=== PATIENT | female | born 1985 | race Caucasian/White ===

== ENCOUNTER → 2018-09-22 14:02 | Outpatient (CLI) | payer BC, SELFPAY ==
--- OUTSIDE RECORDS SUMMARY | 2018-11-27 09:02 | XMS RPT_ITS ---
:1985 Author Organization OHIP Care Team Providers Name Role Phone WOODROW GREER Attending Unavailable ALMA SORENSON Referring Unavailable ANNIE CHAVEZ Attending Unavailable WOODROW GREER E Referring Unavailable ANNIE CHAVEZ Referring Unavailable ANNIE CHAVEZ Referring Unavailable CHRISTIAN SNOW () Referring Unavailable PERCY, WOODROW E Attending Unavailable PERCY WOODROW E Referring Unavailable CHRISTIAN SNOW () Attending Unavailable CHRISTIAN SNOW) Referring Unavailable CHRISTIAN SNOW) Referring Unavailable CHRISTIAN SNOW) Attending Unavailable CHRISTIAN SNOW) Referring Unavailable PERCY, WOODROW E Referring Unavailable Matias Bryant Attending Unavailable Primay Care Physicia, No Primary Care Unavailable PROBLEMS PROBLEMS DATE TYPE CONDITION / CODE ATTENDING STATUS SOURCE 09/22/2018 Unknown Z36.85 - Encounter Matias Bryant Active [facility] for [facility] Streptococcus B / Repository Z36.85(ICD-10) 01/28/2017 Active Essential (primary) NA Active [place] hypertension / [facility] Main I10(ICD-10) [place] Repository 08/06/2018 Active Mixed hyperlipidemia NA Active [place] / E78.2(ICD-10) Clinic Main [place] Repository 02/10/2018 Active Irregular NA Active [place] menstruation, Clinic Main unspecified / [place] N92.6(ICD-10) Repository 01/27/2018 Active Other rodent exterminator NA Active [place] (current) drug Clinic Main therapy / [place] Z79.899(ICD-10) Repository 12/01/2017 Active Other general NA Active [place] symptoms and signs / Clinic Main R68.89(ICD-10) [place] Repository 12/01/2017 Active Abnormal weight gain NA Active [facility] / R63.5(ICD-10) Clinic Main [place] Repository 11/23/2017 Active Other obesity / NA Active [place] E66.8(ICD-10) Clinic Main [place] Repository 11/23/2017 Active Polycystic ovarian NA Active [place] syndrome / Clinic Main E28.2(ICD-10) [place] Repository 11/23/2017 Active Hirsutism / NA Active [facility] L68.0(ICD-10) Clinic Main [place] Repository 11/23/2017 Active Vitamin D NA Active [place] deficiency, Clinic Main unspecified / [place] E55.9(ICD-10) Repository 11/12/2017 Active Other hypersomnia / NA Active [facility] G47.19(ICD-10) Clinic Other [place] Repository 11/12/2017 Active Snoring / NA Active [facility] R06.83(ICD-10) Clinic Other [place] Repository 11/12/2017 Active Other fatigue / NA Active [facility] R53.83(ICD-10) Clinic Other [place] Repository 11/03/2017 Active Unknown / MOUL, WOODROW E Active [facility] UNK(Unknown) Clinic Main [place] Repository PROCEDURES PROCEDURES No Procedure Records FoundRESULTS RESULTS Observed: 09/22/2018 Status: F Source: [facility] 9:15 AM [facility] REPOSITORY Comments: VAGINAL/RECTAL JATINDER Culture ORGANISM 1: Streptococcus agalactiae (B) Amount Growth Growth Streptococcus agalactiae (B): REACTION Ampicillin $ <=0.25 S Benzylpenicillin NF <=0.06 S Ceftriaxone (other dx) $ <=0.12 S Clindamycin $$ <=0.25 S Inducable Clindamycin Resistan NEG Linezolid $$$$ <=2 S Vancomycin $ 0.5 S (NF) indicates non-formulary drug at [facility]. Approval by Infectious Disease Specialist required before non-formulary drugs may be ordered and/or dispensed. * CLSI guidelines does not recommend testing of cephalosporins. This interpretation is deduced from Beta-lactam/penicillin results. Performed By: #### [id number] #### [facility] [address] [place], [address] PROGRESS Observed: 08/10/2018 Status: COMPLETED Source: [place] 8:01 AM [facility] REPOSITORY HNO ID: [id number] Author: Christian Otero) Edy Service: (none) Author Type: Physician Type: Progress Notes Filed: 08/10/2018 8:39 AM Note Text: Chief Complaint Patient presents with: F/U 6 Month HPI Meme Lara is a 32 year old female who presents here today for 6 month follow up. Patient at 30 weeks with delivery date of 10/[address] Bryant. States that she is having baby boy and has had normal thus far aside from some early nausea. Next appointment with OB 08/16. Stopped wellbutrin as recommended. HTN: well controlled on HCTZ. GERD: patient not sure if she is on Protonix or Prilosec for GERD. New rx prescribed by Dr. Bryant, will need to obtain records. Medication working well. Environmental allergies: getting allergy shots, cannot remember name of provider. Will obtain records. Past medical history, appointments, medications, allergies reviewed. Previous Medical History PAST MEDICAL HISTORY Diagnosis Date - Environmental allergies Allergy shots - Excessive daytime sleepiness Dr. Greer, on wellbutrin - GERD (gastroesophageal reflux disease) - HTN (hypertension) - Obesity (BMI 30.0-34.9) Previous Surgical History PAST SURGICAL HISTORY Procedure Laterality Date - BREAST REDUCTION Bilateral 2001 - TOOTH EXTRACTION Family History FAMILY HISTORY Problem Relation Age of Onset - Hypertension Father - Breast Cancer Maternal Grandmother 60 - Cancer Maternal Grandfather Patient Allergies ALLERGIES Allergen Reactions - Steroids [Betametha* Rash Current Medications Current Outpatient Prescriptions on File Prior to Visit: hydroCHLOROthiazide (HYDRODIURIL, ESIDRIX) 25 mg tablet Take 1 tablet by mouth once daily. omeprazole (PRILOSEC) 20 mg capsule 1 capsule once daily. Zxwsezke-Xr-Fej-Fe-FA ( VITAMIN) tab Take 1 tablet by mouth once daily. meclizine (ANTIVERT) 12.5 mg tab Take 1 tablet by mouth every 6 hours as needed (dizziness). buPROPion SR (ZYBAN SR; WELLBUTRIN SR) 150 mg 12 hr tablet Take by mouth one tablet daily. Cholecalciferol, Vitamin D3, 2,000 unit cap Take 2 capsules by mouth once daily. fluticasone (FLONASE) 50 mcg/actuation nasal spray Use 2 Sprays in each nostril once daily. Rinse mouth after use. (Patient not taking: Reported on 08/10/2018 ) No current facility-administered medications on file prior to visit. Social History Social History Marital status: Spouse name: Years of education: Number of children: Social History Main Topics Smoking status: Never Smoker Smokeless tobacco: Never Used Alcohol use: Yes 3.0 oz/week Cans of Beer (12oz): 2 per week Drug use: No Sexual activity: Yes Partners with: Male control/protection: None Review of Symptoms REVIEW OF SYSTEMS GENERAL: No weight loss, malaise or fevers RESPIRATORY: Negative for cough, hemoptysis, wheezing, COPD, dyspnea or shortness of breath CARDIOVASCULAR: Negative for chest pain, leg swelling, hypertension, CHF or palpitations GI: No nausea, vomiting, or diarrhea SKIN: Negative for lesions, rash, and itching EXAM: BP 114/78 Pulse 104 Resp 16 Wt 95.3 kg (210 lb) BMI 33.39 kg/m? General Appearance: Well appearing, alert, in no acute distress, well-hydrated, well nourished.. Skin: Skin color, texture, turgor normal, no suspicious rashes or lesions. Lungs: lungs clear to auscultation. No wheezing, rhonchi, rales. Heart: tachycardia without murmur, gallop, or rubs. No ectopy. Abdomen: Abdomen soft, non-tender. Bowel sounds normal. patient. Extremities: No deformities, edema, skin discoloration, clubbing or cyanosis. Good capillary refill. . Health Maintenance List BP CONTROLLED (<130/80) due on 2002 ANNUAL PCP TEAM CHRONIC DISEASE VISIT due on 02/03/2019 PAP EVERY 5 YEARS due on 08/10/2021 HPV EVERY 5 YEARS due on 08/10/2021 DTAP,TDAP,TD(2 - Td) due on 02/04/2028 INFLUENZA Completed Data reviewed Component Latest Ref Rng AND Units 01/27/2018 02/10/2018 08/06/2018 Protein, Total 6.3 - 8.0 g/dL 6.9 Albumin 3.9 - 4.9 g/dL 3.7 (L) Calcium 8.5 - 10.2 mg/dL 9.4 9.7 Bilirubin, Total 0.2 - 1.3 mg/dL 0.2 Alkaline Phosphatase 34 - 123 U/L 92 AST 13 - 35 U/L 13 Glucose 74 - 99 mg/dL 99 98 BUN 7 - 21 mg/dL 15 9 Creatinine 0.58 - 0.96 mg/dL 0.85 0.68 Sodium 136 - 144 mmol/L 140 138 Potassium 3.7 - 5.1 mmol/L 4.3 4.6 Chloride 97 - 105 mmol/L 104 102 CO2 22 - 30 mmol/L 25 21 (L) Anion Gap 9 - 18 mmol/L 11 15 ALT 7 - 38 U/L 11 eGFR- >60 >60 eGFR-All Other Races . >60 >60 Cholesterol, Total <200 mg/dL 204 (H) Triglyceride <150 mg/dL 250 (H) HDL Cholesterol >39 mg/dL 48 LDL Cholesterol <100 mg/dL 106 (H) Non HDL Cholesterol <130 mg/dL 156 (H) Fasting Time hrs 10 VLDL Cholesterol <30 mg/dL 50 (H) TC:HDL Ratio <5.10 4.25 LDL:HDL Ratio <2.54 2.21 hCG Quantitative, Blood <5.0 mU/mL 1,416.0 (H) ASSESSMENT/PLAN: 1. 30 weeks gestation of - ICD9: V22.2, ICD10: Z3A.30 (primary diagnosis) Progressing normally per patient. Will obtain records from Dr. Bryant. 2. Environmental allergies - ICD9: V15.09, ICD10: Z91.09 Controlled. Continue allergy shots. 3. Gastroesophageal reflux disease, esophagitis presence not specified - ICD9: 530.81, ICD10: K21.9 - Discussed lifestyle modifications including limiting caffeine, no meals three hours before sleep and head of bed elevation 4. Essential hypertension, malignant - ICD9: 401.0, ICD10: I10 - good control - Continue current medication(s) - Encouraged dietary sodium restriction/DASH diet - Recommended regular aerobic exercise. - Reviewed risks of HTN and principles of treatment - Goal of BP <140/90 - COMP METABOLIC PANEL 5. Tachycardia - ICD9: 785.0, ICD10: R00.0 Patient admits to drinking caffeine this morning. Has not been tachycardic at other OV with OB as far as she knows. Will have them recheck at future OV. Christian Snow MD CNOV Observed: 08/10/2018 Status: COMPLETED Source: [place] 8:00 AM [facility] REPOSITORY Office Visit (FAMPWS) MEME LARA ([id number]) 1985 F Date Time Provider Department 08/10/18 8:00 AM CHRISTIAN SNOW) FAMPWS During your visit today, we recorded the following information about you: Pulse Respiration Blood pressure Weight 104/minute 16/minute 114/78 95.3 kg Christian Snow MD 08/10/2018 8:39 AM Signed Chief Complaint Patient presents with: F/U 6 Month HPI Meme Lara is a 32 year old female who presents here today for 6 month follow up. Patient at 30 weeks with delivery date of 10/[address] Bryant. States that she is having baby boy and has had normal thus far aside from some early nausea. Next appointment with OB 08/16. Stopped wellbutrin as recommended. HTN: well controlled on HCTZ. GERD: patient not sure if she is on Protonix or Prilosec for GERD. New rx prescribed by Dr. Bryant, will need to obtain records. Medication working well. Environmental allergies: getting allergy shots, cannot remember name of provider. Will obtain records. Past medical history, appointments, medications, allergies reviewed. Previous Medical History PAST MEDICAL HISTORY Diagnosis Date - Environmental allergies Allergy shots - Excessive daytime sleepiness Dr. Greer, on wellbutrin - GERD (gastroesophageal reflux disease) - HTN (hypertension) - Obesity (BMI 30.0-34.9) Previous Surgical History PAST SURGICAL HISTORY Procedure Laterality Date - BREAST REDUCTION Bilateral 2001 - TOOTH EXTRACTION Family History FAMILY HISTORY Problem Relation Age of Onset - Hypertension Father - Breast Cancer Maternal Grandmother 60 - Cancer Maternal Grandfather Patient Allergies ALLERGIES Allergen Reactions - Steroids [Betametha* Rash Current Medications Current Outpatient Prescriptions on File Prior to Visit: hydroCHLOROthiazide (HYDRODIURIL, ESIDRIX) 25 mg tablet Take 1 tablet by mouth once daily. omeprazole (PRILOSEC) 20 mg capsule 1 capsule once daily. Jrwztdsg-Ik-Lcv-Fe-FA ( VITAMIN) tab Take 1 tablet by mouth once daily. meclizine (ANTIVERT) 12.5 mg tab Take 1 tablet by mouth every 6 hours as needed (dizziness). buPROPion SR (ZYBAN SR; WELLBUTRIN SR) 150 mg 12 hr tablet Take by mouth one tablet daily. Cholecalciferol, Vitamin D3, 2,000 unit cap Take 2 capsules by mouth once daily. fluticasone (FLONASE) 50 mcg/actuation nasal spray Use 2 Sprays in each nostril once daily. Rinse mouth after use. (Patient not taking: Reported on 08/10/2018 ) No current facility-administered medications on file prior to visit. Social History Social History Marital status: Spouse name: Years of education: Number of children: Social History Main Topics Smoking status: Never Smoker Smokeless tobacco: Never Used Alcohol use: Yes 3.0 oz/week Cans of Beer (12oz): 2 per week Drug use: No Sexual activity: Yes Partners with: Male control/protection: None Review of Symptoms REVIEW OF SYSTEMS GENERAL: No weight loss, malaise or fevers RESPIRATORY: Negative for cough, hemoptysis, wheezing, COPD, dyspnea or shortness of breath CARDIOVASCULAR: Negative for chest pain, leg swelling, hypertension, CHF or palpitations GI: No nausea, vomiting, or diarrhea SKIN: Negative for lesions, rash, and itching EXAM: BP 114/78 Pulse 104 Resp 16 Wt 95.3 kg (210 lb) BMI 33.39 kg/m? General Appearance: Well appearing, alert, in no acute distress, well-hydrated, well nourished.. Skin: Skin color, texture, turgor normal, no suspicious rashes or lesions. Lungs: lungs clear to auscultation. No wheezing, rhonchi, rales. Heart: tachycardia without murmur, gallop, or rubs. No ectopy. Abdomen: Abdomen soft, non-tender. Bowel sounds normal. patient. Extremities: No deformities, edema, skin discoloration, clubbing or cyanosis. Good capillary refill. . Health Maintenance List BP CONTROLLED (<130/80) due on 2002 ANNUAL PCP TEAM CHRONIC DISEASE VISIT due on 02/03/2019 PAP EVERY 5 YEARS due on 08/10/2021 HPV EVERY 5 YEARS due on 08/10/2021 DTAP,TDAP,TD(2 - Td) due on 02/04/2028 INFLUENZA Completed Data reviewed Component Latest Ref Rng AND Units 01/27/2018 02/10/2018 08/06/2018 Protein, Total 6.3 - 8.0 g/dL 6.9 Albumin 3.9 - 4.9 g/dL 3.7 (L) Calcium 8.5 - 10.2 mg/dL 9.4 9.7 Bilirubin, Total 0.2 - 1.3 mg/dL 0.2 Alkaline Phosphatase 34 - 123 U/L 92 AST 13 - 35 U/L 13 Glucose 74 - 99 mg/dL 99 98 BUN 7 - 21 mg/dL 15 9 Creatinine 0.58 - 0.96 mg/dL 0.85 0.68 Sodium 136 - 144 mmol/L 140 138 Potassium 3.7 - 5.1 mmol/L 4.3 4.6 Chloride 97 - 105 mmol/L 104 102 CO2 22 - 30 mmol/L 25 21 (L) Anion Gap 9 - 18 mmol/L 11 15 ALT 7 - 38 U/L 11 eGFR- >60 >60 eGFR-All Other Races . >60 >60 Cholesterol, Total <200 mg/dL 204 (H) Triglyceride <150 mg/dL 250 (H) HDL Cholesterol >39 mg/dL 48 LDL Cholesterol <100 mg/dL 106 (H) Non HDL Cholesterol <130 mg/dL 156 (H) Fasting Time hrs 10 VLDL Cholesterol <30 mg/dL 50 (H) TC:HDL Ratio <5.10 4.25 LDL:HDL Ratio <2.54 2.21 hCG Quantitative, Blood <5.0 mU/mL 1,416.0 (H) ASSESSMENT/PLAN: 1. 30 weeks gestation of - ICD9: V22.2, ICD10: Z3A.30 (primary diagnosis) Progressing normally per patient. Will obtain records from Dr. Bryant. 2. Environmental allergies - ICD9: V15.09, ICD10: Z91.09 Controlled. Continue allergy shots. 3. Gastroesophageal reflux disease, esophagitis presence not specified - ICD9: 530.81, ICD10: K21.9 - Discussed lifestyle modifications including limiting caffeine, no meals three hours before sleep and head of bed elevation 4. Essential hypertension, malignant - ICD9: 401.0, ICD10: I10 - good control - Continue current medication(s) - Encouraged dietary sodium restriction/DASH diet - Recommended regular aerobic exercise. - Reviewed risks of HTN and principles of treatment - Goal of BP <140/90 - COMP METABOLIC PANEL 5. Tachycardia - ICD9: 785.0, ICD10: R00.0 Patient admits to drinking caffeine this morning. Has not been tachycardic at other OV with OB as far as she knows. Will have them recheck at future OV. Christian Snow MD Referring Provider: CHRISTIAN SNOW) [[id number]] Allergies As of Date: 08/10/2018 Noted Allergy Reaction STEROIDS (BETAMETHASONE DIPROPION*10/24/2015 2 - Rash Date Reviewed: 08/10/2018 Reviewed by: Zac Owen Ma - Fully Assessed Reason for Visit: F/U 6 Month [444] Primary Visit Diagnosis:30 weeks gestation of [Z3A.30] Other Visit Diagnoses:Environmental allergies [Z91.09] Gastroesophageal reflux disease, esophagitis presence not specified [K21.9] Essential hypertension, malignant [I10] Tachycardia [R00.0] Order(s):COMP METABOLIC PANEL [SQCMP] Order #: [id number] FUTURE Prescriptions as of 08/10/2018 Sig: HYDROCHLOROTHIAZIDE 25 MG TAB* Take 1 tablet by mouth once d* OMEPRAZOLE 20 MG CAPSULE,DOROTHY* 1 capsule once daily. VITAMIN,CALCIUM,MINE* Take 1 tablet by mouth once d* MECLIZINE 12.5 MG TABLET Take 1 tablet by mouth every * PANTOPRAZOLE 40 MG TABLET,DEL* CHOLECALCIFEROL (VITAMIN D3) * Take 2 capsules by mouth once* FLUTICASONE 50 MCG/ACTUATION * Use 2 Sprays in each nostril * Patient not taking: Reported on 08/10/2018 Medication notes this encounter CHOLECALCIFEROL (VITAMIN D3) 2,000 UNIT CAPSULE >> Zac Owen Ma 08/10/2018 7:55 AM >> ZAC OWEN MA WedAug 10, 2018 7:55 AM No longer taking Problem List As Of Date 08/10/2018 Noted Resolved BPPV (benign paroxysmal positional vertigo) [H8*INVALID FOR* Essential hypertension, malignant [I10] INVALID FOR* Uncontrolled daytime somnolence [R40.0] INVALID FOR* Poor sleep hygiene [Z72.821] INVALID FOR* Environmental allergies [Z91.09] Obesity (BMI 30.0-34.9) [E66.9] Excessive daytime sleepiness [G47.19] More... GERD (gastroesophageal reflux disease) [K21.9] Medications Discontinued During This Encounter buPROPion SR (ZYBAN SR; WELLBUTRIN S* 30 t* 1 02/02/2018 08/10/2018 Sig: Take by mouth one tablet daily. Disc: Reason for discontinue is not on file. Disposition: Return in about 6 months (around 02/08/2019). Follow-up and Disposition History Recorded Encounter Status:Closed by CHRISTIAN SNOW MD on 08/10/18 COMP METABOLIC PANEL Collected: 08/06/2018 Status: F Source: [place] 9:07 AM [facility] REPOSITORY TYPE CODE TESTS RESULT OUT OF REFERENCE UNITS RANGE LAB TP 6.3-8.0 g/dL Protein, Total 6.9 LAB ALB 3.9-4.9 g/dL Low Albumin 3.7 LAB CA 8.5-10.2 mg/dL Calcium, Total 9.7 LAB TBIL 0.2-1.3 mg/dL Bilirubin, Total 0.2 LAB ALKP 34-123 U/L Alkaline Phosphatase 92 LAB AST 13-35 U/L AST 13 LAB GLU 74-99 mg/dL Glucose 98 Result Comment: The [place] Diabetes Association (ADA) provides guidance for cutoff values for fasting glucose and random glucose. The ADA defines fasting as no caloric intake for at least 8 hours. Fas ting plasma glucose results between 100 to 125 mg/dL indicate increased risk for diabetes (prediabetes). Fasting plasma glucose results greater than or equal to 126 mg/dL meet the criteria for diagnosis of diabetes. In the absence of unequivocal hyperglycemia, results should be confirmed by repeat testing. In a patient with classic symptoms of hyperglycemia or hyperglycemic crisis, random plasma glucose results greater than or equal to 200 mg/dL meet the criteria for diagnosis of diabetes. Reference: Standards of Medical Care in Diabetes 2016, [place] Diabetes Association. Diabetes Care. 2016.39(Suppl 1). LAB BUN 7-21 mg/dL BUN 9 LAB CRET 0.58-0.96 mg/dL Creatinine 0.68 LAB NA 136-144 mmol/L Sodium 138 LAB K 3.7-5.1 mmol/L Potassium 4.6 LAB CL 97-105 mmol/L Chloride 102 LAB CO2 22-30 mmol/L CO2 Low 21 LAB AGAP 9-18 mmol/L Anion Gap 15 LAB ALT 7-38 U/L ALT 11 LAB GFRAA eGFR- Amer. >60 LAB GFRNAA . eGFR-All Other Races >60 Result Comment: eGFR (Estimated GFR) Units of measure: mL/min/1.73 meters squared eGFR is derived from the reexpressed MDRD Study equation using the following parameters: serum creatinine, age, gender and race. The creatinine assay has been calibrated to be traceable to IDMS. An eGFR <60 mL/min/1.73m2 for >3 months is consistent with chronic kidney disease. Refer to KDOQI guidelines for clinical interpretation. In patients with unstable renal function, e.g. those with acute kidney injury, the eGFR may not accurately reflect actual GFR. Performed By: #### CMP, LIPB #### [facility] [address] [address] LIPID PANEL, BASIC Collected: 08/06/2018 Status: F Source: [place] 9:07 AM [facility] REPOSITORY TYPE CODE TESTS RESULT OUT OF REFERENCE UNITS RANGE LAB CHOL <200 mg/dL Cholesterol High 204 Result Comment: <200 mg/dL, Desirable 200-239 mg/dL, Borderline high >239 mg/dL, High LAB TRIGLY <150 mg/dL Triglyceride High 250 Result Comment: <150 mg/dL, Normal 150-199 mg/dL, Borderline high 200-499 mg/dL, High >499 mg/dL, Very high LAB HDL >39 mg/dL HDL-Cholesterol 48 Result Comment: 40-59 mg/dL, Acceptable >59 mg/dL, High: Negative risk factor for coronary heart disease <40 mg/dL, Low: Positive risk factor for coronary heart disease LAB LDL <100 mg/dL LDL-Cholesterol High 106 Result Comment: <100 mg/dL, Optimal 100-129 mg/dL, Near optimal/above optimal 130-159 mg/dL, Borderline high 160-189 mg/dL, High >189 mg/dL, Very high Secondary prevention optimal LDL Cholesterol levels are recommended to be < 70 mg/dL LAB NONHDL <130 mg/dL Non HDL High Cholesterol 156 Result Comment: <130 mg/dL, Optimal 130-159 mg/dL, Near optimal/above optimal 160-189 mg/dL, Borderline high 190-219 mg/dL, High >219 mg/dL, Very high Secondary prevention optimal non HDL Cholesterol levels are recommended to be < 100 mg/dL LAB FT hrs Fasting Time 10 LAB VLDL <30 mg/dL High VLDL Cholesterol 50 LAB TCHDL <5.10 TC:HDL Ratio 4.25 LAB LDLHDL <2.54 LDL:HDL Ratio 2.21 Result Comment: Reference: 1. National Cholesterol Education Program ATP III Guideline At-A-Glance Quick Desk Reference: National Heart, Lung, and Blood [place]. National Institutes of Health. 2001: NIH Publication No. 01-3305. 2. An International Atherosclerosis Society position paper: global recommendations for the management of dyslipidemia: executive summary, Atherosclerosis. 2014: 232(2):410-413. Performed By: #### CMP, LIPB #### [facility] [address] [place] [id number] HCG, QUANTITATIVE BL Collected: 02/10/2018 Status: F Source: [place] 2:42 PM [facility] REPOSITORY TYPE CODE TESTS RESULT OUT OF REFERENCE UNITS RANGE LAB HCGQT <5.0 mU/mL HCG, High Quantitative Bl 1416.0 Result Comment: QUANTITATIVE HCG NORMAL RANGES Weeks of Gestation (Weeks Since LMP) 3 Weeks (5.8-71.2 mIU/mL) 4 Weeks (9.5-750 mIU/mL) 5 Weeks (217-7138 mIU/mL) 6 Weeks (158-14724 mIU/mL) 7 Weeks (3697-720198 mIU/mL) 8 Weeks (36336-873800 mIU/mL) 9 Weeks (86260-729117 mIU/mL) 10 Weeks (46094-772896 mIU/mL) 12 Weeks (25368-812249 mIU/mL) Referenced to 4th IS of [facility] Performed By: #### HCGQT #### [facility] [address] [place], [place] [address] PROGRESS Observed: 02/03/2018 Status: COMPLETED Source: [place] 8:34 AM [facility] REPOSITORY HNO ID: [id number] Author: Christian Otero) Edy Service: (none) Author Type: Physician Type: Progress Notes Filed: 02/03/2018 9:12 AM Note Text: Chief Complaint No chief complaint on file. KIERAN Lara is a 32 year old female who presents here today for transfer of care visit from Dr. Pereira. Patient has been in good health since last OV without hospitalizations or ER visits. Patient exercising 2 times per week with [place] and occasionally with walking. Does not follow specific diet. Discussed need for weight loss and benefits to health. Following up with Neurology regarding daytime sleepiness. Negative for ALOK. Started on wellbutrin. Has follow up in March. Has been seen by Dr. Chavez regarding cushingoid facies and had negative workup with normal cortisol levels. Does not have follow up scheduled. Patient was previously seeing [facility] in [place] and last pap smear was 08/2016 and was normal. Has not had abnormal pap smear. Will be calling to transfer to women's health here in [place]. and patient are trying for , but is not on vitamin. Requesting rx sent to local pharmacy. Refusing Tdap immunization today. Past medical history, appointments, medications, allergies reviewed. Previous Medical History PAST MEDICAL HISTORY Diagnosis Date - Environmental allergies - GERD (gastroesophageal reflux disease) - HTN (hypertension) - NEGATIVE MEDICAL HISTORY Previous Surgical History PAST SURGICAL HISTORY Procedure Laterality Date - BREAST REDUCTION - TOOTH EXTRACTION Family History FAMILY HISTORY Problem Relation Age of Onset - Hypertension Father - Breast Cancer Maternal Grandmother 60 - Cancer Maternal Grandfather Patient Allergies ALLERGIES Allergen Reactions - Steroids [Betametha* Rash Current Medications Current Outpatient Prescriptions on File Prior to Visit: buPROPion SR (ZYBAN SR; WELLBUTRIN SR) 150 mg 12 hr tablet Take by mouth one tablet daily. montelukast (SINGULAIR) 10 mg tablet omeprazole (PRILOSEC) 20 mg capsule triamterene-hydrochlorothiazide 37.5-25 mg per capsule Take 1 capsule by mouth once daily. fluticasone (FLONASE) 50 mcg/actuation nasal spray Use 2 Sprays in each nostril once daily. Rinse mouth after use. Cholecalciferol, Vitamin D3, 2,000 unit cap Take 2 capsules by mouth once daily. meloxicam (MOBIC) 15 mg tablet Take 1 tablet by mouth once daily. MICROGESTIN FE 1/20 1 mg-20 mcg (21)/75 mg (7) per tablet COMPOUNDED PRESCRIPTION control - unsure of name. meclizine (ANTIVERT) 12.5 mg tab Take 1 tablet by mouth every 6 hours as needed (dizziness). No current facility-administered medications on file prior to visit. Social History Social History Marital status: Spouse name: Years of education: Number of children: Social History Main Topics Smoking status: Never Smoker Smokeless tobacco: Never Used Alcohol use: Yes 3.0 oz/week Cans of Beer (12oz): 2 per week Drug use: No Sexual activity: Yes Partners with: Male Review of Symptoms REVIEW OF SYSTEMS GENERAL: No weight loss, malaise or fevers NECK: Negative for lumps, goiter, pain and significant neck swelling RESPIRATORY: Negative for cough, hemoptysis, wheezing, COPD, dyspnea or shortness of breath CARDIOVASCULAR: Negative for chest pain, leg swelling, hypertension, CHF or palpitations GI: No nausea, vomiting, or diarrhea : No history of dysuria, frequency or incontinence [employer]: Negative for abnormal vaginal bleeding, abnormal vaginal discharge SKIN: Negative for lesions, rash, and itching EXAM: BP 134/88 Pulse 102 Resp 16 Ht 168.9 cm (5' 6.5) Wt 95.3 kg (210 lb) BMI 33.39 kg/m? General Appearance: Well appearing, alert, in no acute distress, well-hydrated, well nourished.. Skin: Skin color, texture, turgor normal, no suspicious rashes or lesions. Neck: Supple, no adenopathy; thyroid symmetric, normal size, no bruits. Lungs: Lungs clear to auscultation. No wheezing, rhonchi, rales. Heart: RRR without murmur, gallop, or rubs. No ectopy. Abdomen: Normal abdominal exam, Abdomen soft, non-tender. Bowel sounds normal. No masses, organomegaly. Extremities: No deformities, edema, skin discoloration, clubbing or cyanosis. Good capillary refill. . Health Maintenance List DTAP,TDAP,TD(1 - Tdap) due on 12/13/2003 INFLUENZA(Season Ended) due on 05/07/2018 PAP EVERY 5 YEARS due on 08/10/2021 HPV EVERY 5 YEARS due on 08/10/2021 Component Latest Ref Rng AND Units 11/23/2017 11/29/2017 11/30/2017 01/27/2018 Glucose 74 - 99 mg/dL 99 BUN 7 - 21 mg/dL 15 Creatinine 0.58 - 0.96 mg/dL 0.85 0.85 Sodium 136 - 144 mmol/L 140 Potassium 3.7 - 5.1 mmol/L 4.3 Chloride 97 - 105 mmol/L 104 CO2 22 - 30 mmol/L 25 Anion Gap 9 - 18 mmol/L 11 Calcium 8.5 - 10.2 mg/dL 9.4 eGFR- >60 >60 eGFR-All Other Races . >60 >60 Testosterone <40 ng/dL 23 Testosterone Free % 0.8 - 2.3 % 3.2 (H) Testosterone Free 1.8 - 10.4 pg/mL 7.4 Hemoglobin A1C 4.3 - 5.6 % 5.4 Estimated Average Glucose mg/dL 108 TSH 0.400 - 5.500 uU/mL 1.860 Prolactin 4.5 - 26.8 ng/mL 21.5 DHEA-S 98.8 - 340.0 ug/dL 105.3 FSH mU/mL 11.6 LH mU/mL 58.5 Insulin 1 - 24 uU/mL 18.7 Glucose, Fasting 74 - 99 mg/dL 98 Vitamin D 25 Hydroxy 31.0 - 80.0 ng/mL 23.6 (L) Cortisol, Saliva ug/dL 0.053 0.041 ASSESSMENT/PLAN: 1. Essential hypertension, malignant - ICD9: 401.0, ICD10: I10 (primary diagnosis) - good control - Continue current medication(s) - Encouraged dietary sodium restriction/DASH diet - Recommended regular aerobic exercise. - Reviewed risks of HTN and principles of treatment - Goal of BP <140/90 - COMP METABOLIC PANEL 2. Environmental allergies - ICD9: V15.09, ICD10: Z91.09 Continue current regimen, well controlled. 3. Obesity (BMI 30.0-34.9) - ICD9: 278.00, ICD10: E66.9 Work on Diet and exercise. Given booklet on meal planning. Recheck at future OV. 4. Excessive daytime sleepiness - ICD9: 780.54, ICD10: G47.19 Continue wellbutrin. Follow up with neurology as scheduled. 5. Gastroesophageal reflux disease, esophagitis presence not specified - ICD9: 530.81, ICD10: K21.9 - Controlled, Continue treatment with Prilosec 20 mg QD 6. BPPV (benign paroxysmal positional vertigo), left - ICD9: 386.11, ICD10: H81.12 Requesting refill of antivert which she uses sparingly. Symptoms very minimal at this time. - MECLIZINE 12.5 MG TABLET 7. Benign paroxysmal positional vertigo, unspecified laterality - ICD9: 386.11, ICD10: H81.10 8. Hyperlipidemia, mixed - ICD9: 272.2, ICD10: E78.2 - Encouraged following a low fat, low cholesterol diet. - Discussed the benefits of regular aerobic exercise and weight loss. - LIPID PANEL BASIC Christian Snow MD CNOV Observed: 02/03/2018 Status: COMPLETED Source: [place] 8:20 AM [facility] REPOSITORY Office Visit (FAMPWS) MEME LARA ([id number]) 1985 F Date Time Provider Department 02/03/18 8:20 AM CHRISTIAN SNOW) FAMPWS During your visit today, we recorded the following information about you: Pulse Respiration Blood pressure Weight 102/minute 16/minute 134/88 95.3 kg Height 1.689 m Christian Snow MD 02/03/2018 9:12 AM Signed Chief Complaint No chief complaint on file. KIERAN Lara is a 32 year old female who presents here today for transfer of care visit from Dr. Pereira. Patient has been in good health since last OV without hospitalizations or ER visits. Patient exercising 2 times per week with [place] and occasionally with walking. Does not follow specific diet. Discussed need for weight loss and benefits to health. Following up with Neurology regarding daytime sleepiness. Negative for ALOK. Started on wellbutrin. Has follow up in March. Has been seen by Dr. Chavez regarding cushingoid facies and had negative workup with normal cortisol levels. Does not have follow up scheduled. Patient was previously seeing [facility] in [place] and last pap smear was 08/2016 and was normal. Has not had abnormal pap smear. Will be calling to transfer to women's health here in [place]. and patient are trying for , but is not on vitamin. Requesting rx sent to local pharmacy. Refusing Tdap immunization today. Past medical history, appointments, medications, allergies reviewed. Previous Medical History PAST MEDICAL HISTORY Diagnosis Date - Environmental allergies - GERD (gastroesophageal reflux disease) - HTN (hypertension) - NEGATIVE MEDICAL HISTORY Previous Surgical History PAST SURGICAL HISTORY Procedure Laterality Date - BREAST REDUCTION - TOOTH EXTRACTION Family History FAMILY HISTORY Problem Relation Age of Onset - Hypertension Father - Breast Cancer Maternal Grandmother 60 - Cancer Maternal Grandfather Patient Allergies ALLERGIES Allergen Reactions - Steroids [Betametha* Rash Current Medications Current Outpatient Prescriptions on File Prior to Visit: buPROPion SR (ZYBAN SR; WELLBUTRIN SR) 150 mg 12 hr tablet Take by mouth one tablet daily. montelukast (SINGULAIR) 10 mg tablet omeprazole (PRILOSEC) 20 mg capsule triamterene-hydrochlorothiazide 37.5-25 mg per capsule Take 1 capsule by mouth once daily. fluticasone (FLONASE) 50 mcg/actuation nasal spray Use 2 Sprays in each nostril once daily. Rinse mouth after use. Cholecalciferol, Vitamin D3, 2,000 unit cap Take 2 capsules by mouth once daily. meloxicam (MOBIC) 15 mg tablet Take 1 tablet by mouth once daily. MICROGESTIN FE 1/20 1 mg-20 mcg (21)/75 mg (7) per tablet COMPOUNDED PRESCRIPTION control - unsure of name. meclizine (ANTIVERT) 12.5 mg tab Take 1 tablet by mouth every 6 hours as needed (dizziness). No current facility-administered medications on file prior to visit. Social History Social History Marital status: Spouse name: Years of education: Number of children: Social History Main Topics Smoking status: Never Smoker Smokeless tobacco: Never Used Alcohol use: Yes 3.0 oz/week Cans of Beer (12oz): 2 per week Drug use: No Sexual activity: Yes Partners with: Male Review of Symptoms REVIEW OF SYSTEMS GENERAL: No weight loss, malaise or fevers NECK: Negative for lumps, goiter, pain and significant neck swelling RESPIRATORY: Negative for cough, hemoptysis, wheezing, COPD, dyspnea or shortness of breath CARDIOVASCULAR: Negative for chest pain, leg swelling, hypertension, CHF or palpitations GI: No nausea, vomiting, or diarrhea : No history of dysuria, frequency or incontinence [employer]: Negative for abnormal vaginal bleeding, abnormal vaginal discharge SKIN: Negative for lesions, rash, and itching EXAM: BP 134/88 Pulse 102 Resp 16 Ht 168.9 cm (5' 6.5) Wt 95.3 kg (210 lb) BMI 33.39 kg/m? General Appearance: Well appearing, alert, in no acute distress, well-hydrated, well nourished.. Skin: Skin color, texture, turgor normal, no suspicious rashes or lesions. Neck: Supple, no adenopathy; thyroid symmetric, normal size, no bruits. Lungs: Lungs clear to auscultation. No wheezing, rhonchi, rales. Heart: RRR without murmur, gallop, or rubs. No ectopy. Abdomen: Normal abdominal exam, Abdomen soft, non-tender. Bowel sounds normal. No masses, organomegaly. Extremities: No deformities, edema, skin discoloration, clubbing or cyanosis. Good capillary refill. . Health Maintenance List DTAP,TDAP,TD(1 - Tdap) due on 12/13/2003 INFLUENZA(Season Ended) due on 05/07/2018 PAP EVERY 5 YEARS due on 08/10/2021 HPV EVERY 5 YEARS due on 08/10/2021 Component Latest Ref Rng AND Units 11/23/2017 11/29/2017 11/30/2017 01/27/2018 Glucose 74 - 99 mg/dL 99 BUN 7 - 21 mg/dL 15 Creatinine 0.58 - 0.96 mg/dL 0.85 0.85 Sodium 136 - 144 mmol/L 140 Potassium 3.7 - 5.1 mmol/L 4.3 Chloride 97 - 105 mmol/L 104 CO2 22 - 30 mmol/L 25 Anion Gap 9 - 18 mmol/L 11 Calcium 8.5 - 10.2 mg/dL 9.4 eGFR- >60 >60 eGFR-All Other Races . >60 >60 Testosterone <40 ng/dL 23 Testosterone Free % 0.8 - 2.3 % 3.2 (H) Testosterone Free 1.8 - 10.4 pg/mL 7.4 Hemoglobin A1C 4.3 - 5.6 % 5.4 Estimated Average Glucose mg/dL 108 TSH 0.400 - 5.500 uU/mL 1.860 Prolactin 4.5 - 26.8 ng/mL 21.5 DHEA-S 98.8 - 340.0 ug/dL 105.3 FSH mU/mL 11.6 LH mU/mL 58.5 Insulin 1 - 24 uU/mL 18.7 Glucose, Fasting 74 - 99 mg/dL 98 Vitamin D 25 Hydroxy 31.0 - 80.0 ng/mL 23.6 (L) Cortisol, Saliva ug/dL 0.053 0.041 ASSESSMENT/PLAN: 1. Essential hypertension, malignant - ICD9: 401.0, ICD10: I10 (primary diagnosis) - good control - Continue current medication(s) - Encouraged dietary sodium restriction/DASH diet - Recommended regular aerobic exercise. - Reviewed risks of HTN and principles of treatment - Goal of BP <140/90 - COMP METABOLIC PANEL 2. Environmental allergies - ICD9: V15.09, ICD10: Z91.09 Continue current regimen, well controlled. 3. Obesity (BMI 30.0-34.9) - ICD9: 278.00, ICD10: E66.9 Work on Diet and exercise. Given booklet on meal planning. Recheck at future OV. 4. Excessive daytime sleepiness - ICD9: 780.54, ICD10: G47.19 Continue wellbutrin. Follow up with neurology as scheduled. 5. Gastroesophageal reflux disease, esophagitis presence not specified - ICD9: 530.81, ICD10: K21.9 - Controlled, Continue treatment with Prilosec 20 mg QD 6. BPPV (benign paroxysmal positional vertigo), left - ICD9: 386.11, ICD10: H81.12 Requesting refill of antivert which she uses sparingly. Symptoms very minimal at this time. - MECLIZINE 12.5 MG TABLET 7. Benign paroxysmal positional vertigo, unspecified laterality - ICD9: 386.11, ICD10: H81.10 8. Hyperlipidemia, mixed - ICD9: 272.2, ICD10: E78.2 - Encouraged following a low fat, low cholesterol diet. - Discussed the benefits of regular aerobic exercise and weight loss. - LIPID PANEL BASIC Christian Snow MD Referring Provider: SELF [[id number]] Allergies As of Date: 02/03/2018 Noted Allergy Reaction STEROIDS (BETAMETHASONE DIPROPION*10/24/2015 2 - Rash Date Reviewed: 02/03/2018 Reviewed by: Christian Otero) Edy - Fully Assessed Primary Visit Diagnosis:Essential hypertension, malignant [I10] Other Visit Diagnoses:Environmental allergies [Z91.09] Obesity (BMI 30.0-34.9) [E66.9] Excessive daytime sleepiness [G47.19] Gastroesophageal reflux disease, esophagitis presence not specified [K21.9] BPPV (benign paroxysmal positional vertigo), left [H81.12] Benign paroxysmal positional vertigo, unspecified laterality [H81.10] Hyperlipidemia, mixed [E78.2] Order(s):omeprazole (PRILOSEC) 20 mg capsule1 capsule once daily.Disp: Rfl: 0 Tumbkepo-Le-Nxp-Fe-FA ( VITAMIN) tabTake 1 tablet by mouth once daily.Disp: 30 tabletRfl: 11 COMP METABOLIC PANEL [SQCMP] Order #: [id number] FUTURE LIPID PANEL BASIC [SQLIPB] Order #: [id number] FUTURE meclizine (ANTIVERT) 12.5 mg tabTake 1 tablet by mouth every 6 hours as needed (dizziness).Disp: 30 tabletRfl: 1 Prescriptions as of 02/03/2018 Sig: OMEPRAZOLE 20 MG CAPSULE,DOROTHY* 1 capsule once daily. BUPROPION HCL SR 150 MG TABLE* Take by mouth one tablet mounika* TRIAMTERENE 37.5 MG-HYDROCHLO* Take 1 capsule by mouth once * FLUTICASONE 50 MCG/ACTUATION * Use 2 Sprays in each nostril * VITAMIN,CALCIUM,MINE* Take 1 tablet by mouth once d* MECLIZINE 12.5 MG TABLET Take 1 tablet by mouth every * CHOLECALCIFEROL (VITAMIN D3) * Take 2 capsules by mouth once* Problem List As Of Date 02/03/2018 Noted Resolved BPPV (benign paroxysmal positional vertigo) [H8*INVALID FOR* Essential hypertension, malignant [I10] INVALID FOR* Uncontrolled daytime somnolence [R40.0] INVALID FOR* Poor sleep hygiene [Z72.821] INVALID FOR* Environmental allergies [Z91.09] Obesity (BMI 30.0-34.9) [E66.9] Excessive daytime sleepiness [G47.19] More... GERD (gastroesophageal reflux disease) [K21.9] Prescriptions ordered this encounter Disp Refills Start End OMEPRAZOLE 20 MG CAPSULE,DELAYED REL* 0 02/03/2018 Class: Med Update Si capsule once daily. VITAMIN,CALCIUM,MINERALS-IR* 30 t* 11 02/03/2018 Route: ORAL Sig: Take 1 tablet by mouth once daily. MECLIZINE 12.5 MG TABLET 30 t* 1 02/03/2018 Route: ORAL Sig: Take 1 tablet by mouth every 6 hours as needed (dizziness). Medications Discontinued During This Encounter montelukast (SINGULAIR) 10 mg tablet 0 10/21/2017 02/03/2018 Class: Historical Med Sig: Disc: Reason for discontinue is not on file. omeprazole (PRILOSEC) 20 mg capsule 0 10/21/2017 02/03/2018 Class: Historical Med Sig: Disc: Reason for discontinue is not on file. meloxicam (MOBIC) 15 mg tablet 30 t* 1 05/12/2017 02/03/2018 Route: ORAL Sig: Take 1 tablet by mouth once daily. Disc: Reason for discontinue is not on file. MICROGESTIN FE 09/25 1 mg-20 mcg (21)* 02/03/2017 02/03/2018 Class: Historical Med Sig: Disc: Reason for discontinue is not on file. COMPOUNDED PRESCRIPTION 02/03/2018 Class: Historical Med Sig: control - unsure of name. Disc: Reason for discontinue is not on file. meclizine (ANTIVERT) 12.5 mg tab 30 t* 0 11/03/2016 02/03/2018 Route: ORAL Sig: Take 1 tablet by mouth every 6 hours as needed (dizziness). Disc: Reason for discontinue is not on file. Disposition: Return in about 6 months (around 08/05/2018). Follow-up and Disposition History Recorded Encounter Status:Closed by CHRISTIAN SNOW MD on 02/03/18 CNOV Observed: 02/02/2018 Status: COMPLETED Source: [place] 8:00 AM [facility] REPOSITORY Office Visit (NEMOWS) MARCOMEME Gupta ([id number]) 1985 F Date Time Provider Department 02/02/18 8:00 AM WOODROW GREER During your visit today, we recorded the following information about you: Pulse Respiration Blood pressure Weight 94/minute 16/minute 110/77 95.3 kg Woodrow Greer MD 02/02/2018 8:33 AM Signed [facility] Follow-up/Established patient visit Reason for Visit at [facility] : Study follow up. For this visit, a total pgju-eh-zkee time with the patient comprised 15 minutes, with at least 50% of that time devoted to [id number] counseling and coordination of care, with especial emphasis placed on answering the patient?s and/or family?s questions in a form that they can understand and appreciate. Relevant Medications, allergies, hx Reviewed: yes Date of last visit: 11/03/16 Insurance: [facility] Home Location: [place] Psychological/Psychiatric Developments: Later in the day, gets both tired and sleepy. Not motivated when getting home. Medical and Neurological Developments: Passed the cushings workup, as far as she no Insomnia: no RLS: no Other: no SLEEP-WAKE SCHEDULE Bedtime: usu around 9 or 9:30 SLEEP LATENCY: no problem. Wake after Sleep Onset wakes up several times, brb or tossing and turning Wake time: 5:45 druing the week, with an alarm. On weekends, she wakes from 7:30 to 8 Sleep Quality: ok She does not take naps. Average total sleep time (in a 24 hour period): 7 Hours during the week. . Obstructive Sleep Apnea Issues: Most Recent Apnea-Hypopnea Index: HSAT was 2.2. But study was 4% type ALLERGIES Allergen Reactions - Steroids [Betametha* Rash CURRENT MEDICATIONS: Cholecalciferol, Vitamin D3, 2,000 unit cap Take 2 capsules by mouth once daily. montelukast (SINGULAIR) 10 mg tablet omeprazole (PRILOSEC) 20 mg capsule triamterene-hydrochlorothiazide 37.5-25 mg per capsule Take 1 capsule by mouth once daily. meloxicam (MOBIC) 15 mg tablet Take 1 tablet by mouth once daily. MICROGESTIN FE 1/20 1 mg-20 mcg (21)/75 mg (7) per tablet fluticasone (FLONASE) 50 mcg/actuation nasal spray Use 2 Sprays in each nostril once daily. Rinse mouth after use. COMPOUNDED PRESCRIPTION control - unsure of name. meclizine (ANTIVERT) 12.5 mg tab Take 1 tablet by mouth every 6 hours as needed (dizziness). Vital signs: BP 110/77 (BP Site: Right Arm, BP Position: Sitting, BP Cuff Size: Large Adult) Pulse 94 Resp 16 Wt 95.3 kg (210 lb) BMI 33.35 kg/m? MENTAL STATUS General appearance: obese Grooming good Orientation: Ox3 Memory: Grossly intact Kinetics: normal Eye Contact: good Demeanor standard Speech: articulate Thought Stream logical Thought Content about issues Mood: good Affect: euth Suicidal Ideation: no Homocidal Ideation: No Psychosis no Insight good Judgment good ENT : na Abdomen: obese Neuro: Gait and station normal, Strength grossly normal in all extremities. Coordination grossly intact. No tremors noted. Sleep Disorder Dx Impression: Excessive daytime sleepiness. Other Conditioning Diagnoses: HTN Benign paroxysmal positional vertigo. Case Formulation / [place] (may include pt's hopes, fears, expectations, concerns): Still with some sleepiness. Pt prefers to try a course of Wellbutrin before proceeding further Actions taken: Motivational Interviewing aspects taken Offering choices OARRS Aspect: na Wellbutrin SR 150 mg in AM #30 with 1 refill Plan: See if we can get by with some wellbutrin; But may later need MSLT. Still some suspicion for ALOK, so Doing a PSG-MSLT combo would still be a consideration, provided we had RERA scoring. Follow up 2 months with JEF Montenegro. Woodrow Greer MD Referring Provider: WOODROW GREER [[id number]] Allergies As of Date: 02/02/2018 Noted Allergy Reaction STEROIDS (BETAMETHASONE DIPROPION*10/24/2015 2 - Rash Date Reviewed: 11/22/2017 Reviewed by: Kameron Koch MA - Fully Assessed Reason for Visit: Established Patient [[id number]] Cmt: review sleep study and had appointment with Endocrinology Primary Visit Diagnosis:Uncontrolled daytime somnolence [R40.0] Other Visit Diagnosis:Essential hypertension, malignant [I10] Order(s):buPROPion SR (ZYBAN SR; WELLBUTRIN SR) 150 mg 12 hr tabletTake by mouth one tablet daily.Disp: 30 tabletRfl: 1 Prescriptions as of 02/02/2018 Sig: BUPROPION HCL SR 150 MG TABLE* Take by mouth one tablet mounika* CHOLECALCIFEROL (VITAMIN D3) * Take 2 capsules by mouth once* MONTELUKAST 10 MG TABLET OMEPRAZOLE 20 MG CAPSULE,DOROTHY* TRIAMTERENE 37.5 MG-HYDROCHLO* Take 1 capsule by mouth once * MELOXICAM 15 MG TABLET Take 1 tablet by mouth once d* MICROGESTIN FE 09/25 () 1 MG* FLUTICASONE 50 MCG/ACTUATION * Use 2 Sprays in each nostril * COMPOUNDED PRESCRIPTION control - unsure of nam* MECLIZINE 12.5 MG TABLET Take 1 tablet by mouth every * Problem List As Of Date 02/02/2018 Noted Resolved BPPV (benign paroxysmal positional vertigo) [H8*INVALID FOR* Essential hypertension, malignant [I10] INVALID FOR* Uncontrolled daytime somnolence [R40.0] INVALID FOR* Poor sleep hygiene [Z72.821] INVALID FOR* Prescriptions ordered this encounter Disp Refills Start End BUPROPION HCL SR 150 MG TABLET,12 HR* 30 t* 1 02/02/2018 Sig: Take by mouth one tablet daily. Disposition: Return in about 2 months (around 04/04/2018). Follow-up and Disposition History Recorded Encounter Status:Closed by MD WOODROW GREER on 02/02/18 PROGRESS Observed: 02/02/2018 Status: COMPLETED Source: [place] 7:53 AM [facility] REPOSITORY HNO ID: [id number] Author: Woodrow Greer Service: (none) Author Type: Physician Type: Progress Notes Filed: 02/02/2018 8:33 AM Note Text: [facility] Follow-up/Established patient visit Reason for Visit at [facility] : Study follow up. For this visit, a total foqj-yr-qrll time with the patient comprised 15 minutes, with at least 50% of that time devoted to tvzy-qi-lkyg counseling and coordination of care, with especial emphasis placed on answering the patient?s and/or family?s questions in a form that they can understand and appreciate. Relevant Medications, allergies, hx Reviewed: yes Date of last visit: 11/03/16 Insurance: [facility] Home Location: [place] Psychological/Psychiatric Developments: Later in the day, gets both tired and sleepy. Not motivated when getting home. Medical and Neurological Developments: Passed the cushings workup, as far as she no Insomnia: no RLS: no Other: no SLEEP-WAKE SCHEDULE Bedtime: usu around 9 or 9:30 SLEEP LATENCY: no problem. Wake after Sleep Onset wakes up several times, brb or tossing and turning Wake time: 5:45 druing the week, with an alarm. On weekends, she wakes from 7:30 to 8 Sleep Quality: ok She does not take naps. Average total sleep time (in a 24 hour period): 7 Hours during the week. . Obstructive Sleep Apnea Issues: Most Recent Apnea-Hypopnea Index: HSAT was 2.2. But study was 4% type ALLERGIES Allergen Reactions - Steroids [Betametha* Rash CURRENT MEDICATIONS: Cholecalciferol, Vitamin D3, 2,000 unit cap Take 2 capsules by mouth once daily. montelukast (SINGULAIR) 10 mg tablet omeprazole (PRILOSEC) 20 mg capsule triamterene-hydrochlorothiazide 37.5-25 mg per capsule Take 1 capsule by mouth once daily. meloxicam (MOBIC) 15 mg tablet Take 1 tablet by mouth once daily. MICROGESTIN FE /20 1 mg-20 mcg (21)/75 mg (7) per tablet fluticasone (FLONASE) 50 mcg/actuation nasal spray Use 2 Sprays in each nostril once daily. Rinse mouth after use. COMPOUNDED PRESCRIPTION control - unsure of name. meclizine (ANTIVERT) 12.5 mg tab Take 1 tablet by mouth every 6 hours as needed (dizziness). Vital signs: BP 110/77 (BP Site: Right Arm, BP Position: Sitting, BP Cuff Size: Large Adult) Pulse 94 Resp 16 Wt 95.3 kg (210 lb) BMI 33.35 kg/m? MENTAL STATUS General appearance: obese Grooming good Orientation: Ox3 Memory: Grossly intact Kinetics: normal Eye Contact: good Demeanor standard Speech: articulate Thought Stream logical Thought Content about issues Mood: good Affect: euth Suicidal Ideation: no Homocidal Ideation: No Psychosis no Insight good Judgment good ENT : na Abdomen: obese Neuro: Gait and station normal, Strength grossly normal in all extremities. Coordination grossly intact. No tremors noted. Sleep Disorder Dx Impression: Excessive daytime sleepiness. Other Conditioning Diagnoses: HTN Benign paroxysmal positional vertigo. Case Formulation / [place] (may include pt's hopes, fears, expectations, concerns): Still with some sleepiness. Pt prefers to try a course of Wellbutrin before proceeding further Actions taken: Motivational Interviewing aspects taken Offering choices OARRS Aspect: na Wellbutrin SR 150 mg in AM #30 with 1 refill Plan: See if we can get by with some wellbutrin; But may later need MSLT. Still some suspicion for ALOK, so Doing a PSG-MSLT combo would still be a consideration, provided we had RERA scoring. Follow up 2 months with JEF Montenegro. Woodrow Greer MD BASIC METABOLIC PANL Collected: 01/27/2018 Status: F Source: [place] 7:45 AM [facility] RE[facility] TYPE CODE TESTS RESULT OUT OF REFERENCE UNITS RANGE LAB GLU 74-99 mg/dL Glucose 99 Result Comment: The [place] [employer] (ADA) provides guidance for cutoff values for fasting glucose and random glucose. The ADA defines fasting as no caloric intake for at least 8 hours. Fas ting plasma glucose results between 100 to 125 mg/dL indicate increased risk for diabetes (prediabetes). Fasting plasma glucose results greater than or equal to 126 mg/dL meet the criteria for diagnosis of diabetes. In the absence of unequivocal hyperglycemia, results should be confirmed by repeat testing. In a patient with classic symptoms of hyperglycemia or hyperglycemic crisis, random plasma glucose results greater than or equal to 200 mg/dL meet the criteria for diagnosis of diabetes. Reference: Standards of Medical Care in Diabetes 2016, [place] [employer] Association. Diabetes Care. 2016.39(Suppl 1). LAB BUN 7-21 mg/dL BUN 15 LAB CRET 0.58-0.96 mg/dL Creatinine 0.85 LAB NA 136-144 mmol/L Sodium 140 LAB K 3.7-5.1 mmol/L Potassium 4.3 LAB CL 97-105 mmol/L Chloride 104 LAB CO2 22-30 mmol/L CO2 25 LAB AGAP 9-18 mmol/L Anion Gap 11 LAB CA 8.5-10.2 mg/dL Calcium, Total 9.4 LAB GFRAA eGFR- Amer. >60 LAB GFRNAA . eGFR-All Other Races >60 Result Comment: eGFR (Estimated GFR) Units of measure: mL/min/1.73 meters squared eGFR is derived from the reexpressed MDRD Study equation using the following parameters: serum creatinine, age, gender and race. The creatinine assay has been calibrated to be traceable to IDMS. An eGFR <60 mL/min/1.73m2 for >3 months is consistent with chronic kidney disease. Refer to KDOQI guidelines for clinical interpretation. In patients with unstable renal function, e.g. those with acute kidney injury, the eGFR may not accurately reflect actual GFR. Performed By: #### BMP #### [facility] [address] [place], [place] [address] CNPTOUTREACH Observed: 01/18/2018 Status: COMPLETED Source: [place] 12:00 AM [facility] REPOSITORY Patient Outreach (FAMPST) MEME LARA ([id number]) 1985 F Date Time Provider Department 01/18/18 CHRISTIAN SNOW) FAMPST During your visit today, we recorded the following information about you: Allergies As of Date: 01/18/2018 Noted Allergy Reaction STEROIDS (BETAMETHASONE DIPROPION*10/24/2015 2 - Rash Date Reviewed: 11/22/2017 Reviewed by: Kameron Koch MA - Fully Assessed Visit Diagnosis:Medication management [Z79.899] Order(s):BASIC METABOLIC PNL [SQBMP] Order #: [id number] FUTURE Prescriptions as of 01/18/2018 Sig: X MONTELUKAST 10 MG TABLET X OMEPRAZOLE 20 MG CAPSULE,DOROTHY* X TRIAMTERENE 37.5 MG-HYDROCHLO* Take 1 capsule by mouth once * X MELOXICAM 15 MG TABLET Take 1 tablet by mouth once d* X MICROGESTIN FE 09/25 (28) 1 MG* FLUTICASONE 50 MCG/ACTUATION * Use 2 Sprays in each nostril * X COMPOUNDED PRESCRIPTION control - unsure of nam* X MECLIZINE 12.5 MG TABLET Take 1 tablet by mouth every * Problem List As Of Date 01/18/2018 Noted Resolved BPPV (benign paroxysmal positional vertigo) [H8*INVALID FOR* Essential hypertension, malignant [I10] INVALID FOR* Uncontrolled daytime somnolence [R40.0] INVALID FOR* Poor sleep hygiene [Z72.821] INVALID FOR* Encounter Status:Closed by NATIONSPLAY, PRODUSER on 06/17/18 CORTISOL, SALIVA Collected: 11/30/2017 Status: F Source: [place] 11:17 PM [facility] REPOSITORY TYPE CODE TESTS RESULT OUT OF REFERENCE UNITS RANGE LAB SCOR ug/dL Cortisol, 0.041 Saliva Result Comment: (NOTE) INTERPRETIVE INFORMATION: Cortisol, Saliva Effective 09/28/2005 For collection at 2300 hr. the normal cortisol concentration is less than 0.112 ug/dL. Patients with Cushings Syndrome have concentrations of 0.112 ug/dL or greater. a.m. ([id number]) p.m. (noon-1800) Males 2.5-7 years 0.034-0.645 ug/dL 0.053-0.607 ug/dL 8-11 years 0.084-0.839 ug/dL less than 0.215 ug/dL 12-18 years 0.021-0.883 ug/dL less than 0.259 ug/dL 19-30 years 0.112-0.743 ug/dL less than 0.308 ug/dL 31-50 years 0.122-1.551 ug/dL less than 0.359 ug/dL 51 and older 0.112-0.812 ug/dL less than 0.228 ug/dL Females 2.5-7 years 0.034-0.645 ug/dL 0.053-0.607 ug/dL 8-11 years 0.084-0.839 ug/dL less than 0.215 ug/dL 12-18 years 0.021-0.883 ug/dL less than 0.259 ug/dL 19-30 years 0.272-1.348 ug/dL less than 0.359 ug/dL 31-50 years 0.094-1.515 ug/dL less than 0.181 ug/dL 51 and older 0.149-0.739 ug/dL 0.022-0.254 ug/dL Performed by [facility], [address] [place] [address] [email or web address], Reji Santiago MD, Lab. Director Performed By: #### SCORT #### [facility] [address] [place] [address] [phone] CORTISOL, SALIVA Collected: 11/29/2017 Status: F Source: [place] 11:17 PM [facility] RE[facility] TYPE CODE TESTS RESULT OUT OF REFERENCE UNITS RANGE LAB SCOR ug/dL Cortisol, 0.053 Saliva Result Comment: (NOTE) INTERPRETIVE INFORMATION: Cortisol, Saliva Effective 09/28/2005 For collection at 2300 hr. the normal cortisol concentration is less than 0.112 ug/dL. Patients with Cushings Syndrome have concentrations of 0.112 ug/dL or greater. a.m. ([id number]) p.m. (noon-1800) Males 2.5-7 years 0.034-0.645 ug/dL 0.053-0.607 ug/dL 8-11 years 0.084-0.839 ug/dL less than 0.215 ug/dL 12-18 years 0.021-0.883 ug/dL less than 0.259 ug/dL 19-30 years 0.112-0.743 ug/dL less than 0.308 ug/dL 31-50 years 0.122-1.551 ug/dL less than 0.359 ug/dL 51 and older 0.112-0.812 ug/dL less than 0.228 ug/dL Females 2.5-7 years 0.034-0.645 ug/dL 0.053-0.607 ug/dL 8-11 years 0.084-0.839 ug/dL less than 0.215 ug/dL 12-18 years 0.021-0.883 ug/dL less than 0.259 ug/dL 19-30 years 0.272-1.348 ug/dL less than 0.359 ug/dL 31-50 years 0.094-1.515 ug/dL less than 0.181 ug/dL 51 and older 0.149-0.739 ug/dL 0.022-0.254 ug/dL Performed by [facility], [address] [place] [id number] [email or web address], Reji Santiago MD, Lab. Director Performed By: #### SCTALON #### [facility] [address] [place] [address] [phone] CREATININE Collected: 11/23/2017 Status: F Source: [place] 7:47 AM [facility] REPOSITORY TYPE CODE TESTS RESULT OUT OF REFERENCE UNITS RANGE LAB CRET 0.58-0.96 mg/dL Creatinine 0.85 LAB GFRAA eGFR- >60 Amer. LAB GFRNAA . eGFR-All Other Races >60 Result Comment: eGFR (Estimated GFR) Units of measure: mL/min/1.73 meters squared eGFR is derived from the reexpressed MDRD Study equation using the following parameters: serum creatinine, age, gender and race. The creatinine assay has been calibrated to be traceable to IDMS. An eGFR <60 mL/min/1.73m2 for >3 months is consistent with chronic kidney disease. Refer to KDOQI guidelines for clinical interpretation. In patients with unstable renal function, e.g. those with acute kidney injury, the eGFR may not accurately reflect actual GFR. Performed By: #### CRET1, PROL, TSH, DHEAS, FSH, LH, HBA1C, INSULN, VITD, FTESTO #### [facility] [address] [place], [place] [address] PROLACTIN Collected: 11/23/2017 Status: F Source: [place] 7:47 AM [facility] REPOSITORY TYPE CODE TESTS RESULT OUT OF REFERENCE UNITS RANGE LAB PROL 4.5-26.8 ng/mL Prolactin 21.5 Performed By: #### CRET1, PROL, TSH, DHEAS, FSH, LH, HBA1C, INSULN, VITD, FTESTO #### [facility] [address] [place], [place] [address] TSH Collected: 11/23/2017 Status: F Source: [place] 7:47 [facility] REPOSITORY TYPE CODE TESTS RESULT OUT OF RANGE REFERENCE UNITS LAB TSH 0.400-5.500 uU/mL TSH 1.860 Result Comment: If the patient is , TSH reference range varies by gestational period: First Trimester 0.100-2.500 uU/mL Second Trimester 0.200-3.000 uU/mL Third Trimester 0.300-3.000 uU/mL References: 1. Parra L, Aaron M, Nic RIVERA, et al. Management of Thyroid Dysfunction during and : An Endocrine Society Clinical Practice Guideline. J Clin Endocrinol Metab, 2012:97:3751-5150. 2. Jl COLINDRES. Overview of thyroid disease in . UpToDate. 2016. Accessed on February 21, 2016. Performed By: #### CRET1, PROL, TSH, DHEAS, FSH, LH, HBA1C, INSULN, VITD, FTESTO #### [facility] [address] [place], [place] [address] DHEA-S Collected: 11/23/2017 Status: F Source: [place] 7:47 [facility] REPOSITORY TYPE CODE TESTS RESULT OUT OF REFERENCE UNITS RANGE LAB DHEAS 98.8-340.0 ug/dL DHEA-S 105.3 Result Comment: Reference ranges are age and gender specific. For additional information, reference range tables can be found in the laboratory test directory. The normal values are based on the following source: Dehydroepiandrosterone sulfate (DHEA S) [package insert V 17.0 Indian]. [facility], [employer], [place]: April 2013. Performed By: #### CRET1, PROL, TSH, DHEAS, FSH, LH, HBA1C, INSULN, VITD, FTESTO #### [facility] [address] [place], [place] [address] FSH Collected: 11/23/2017 Status: F Source: [place] 7:47 AM [facility] REPOSITORY TYPE CODE TESTS RESULT OUT OF RANGE REFERENCE UNITS LAB FSH mU/mL FSH 11.6 Result Comment: Reference range: Follicular: 2-11 Midcycle: 10-30 Luteal: 1-9 Post Anna: 20-100 Performed By: #### CRET1, PROL, TSH, DHEAS, FSH, LH, HBA1C, INSULN, VITD, FTESTO #### [facility] [address] [place] [address] LH Collected: 11/23/2017 Status: F Source: [facility] 7:47 AM [facility] REPOSITORY TYPE CODE TESTS RESULT OUT OF RANGE REFERENCE UNITS LAB LH mU/mL LH 58.5 Result Comment: Reference range: Follicular: 1-12 Midcycle: 20-90 Luteal: 1-10 Post Anna: >20 Performed By: #### CRET1, PROL, TSH, DHEAS, FSH, LH, HBA1C, INSULN, VITD, FTESTO #### [facility] [address] [place] [address] HEMOGLOBIN A1C Collected: 11/23/2017 Status: F Source: [place] 7:47 AM [facility] REPOSITORY TYPE CODE TESTS RESULT OUT OF REFERENCE UNITS RANGE LAB HGBA1C 4.3-5.6 % Hemoglobin A1c 5.4 LAB HBA0 mg/dL Est. Average Glucose 108 Result Comment: eAG: (Estimated average glucose) is a calculated value from HgbA1c and is contracts representative of the average blood glucose level in the last 2-3 month period. Performed By: #### CRET1, PROL, TSH, DHEAS, FSH, LH, HBA1C, INSULN, VITD, FTESTO #### [facility] [address] [place] [place] [address] INSULIN Collected: 11/23/2017 Status: F Source: [place] 7:47 AM [facility] REPOSITORY TYPE CODE TESTS RESULT OUT OF REFERENCE UNITS RANGE LAB INSULN 1-24 uU/mL Insulin 18.7 Performed By: #### CRET1, PROL, TSH, DHEAS, FSH, LH, HBA1C, INSULN, VITD, FTESTO #### [facility] [address] [place], [place] [address] VITAMIN D 25 HYDROXY Collected: 11/23/2017 Status: F Source: [place] 7:47 [facility] REPOSITORY TYPE CODE TESTS RESULT OUT OF REFERENCE UNITS RANGE LAB VITD 31.0-80.0 ng/mL Low Vitamin D 25 23.6 Hydroxy Result Comment: Classification of 25 [place] Vitamin D status: Insufficiency/Moderate Deficiency: < or = 30 ng/mL Sufficiency/Optimal Levels: 31 to 80 ng/mL Toxicity: > 100 ng/mL Test performed by chemiluminescent immunoassay. Performed By: #### CRET1, PROL, TSH, DHEAS, FSH, LH, HBA1C, INSULN, VITD, FTESTO #### [facility] [address] [place], [place] [address] FREE TESTOSTERONE Collected: 11/23/2017 Status: F Source: [place] 7:47 [facility] REPOSITORY TYPE CODE TESTS RESULT OUT OF REFERENCE UNITS RANGE LAB TESTO <40 ng/dL Testosterone 23 LAB FREE 0.8-2.3 % Free High Testosterone % 3.2 LAB FRTSTO 1.8-10.4 pg/mL Free Testosterone 7.4 Result Comment: This test was developed and its performance characteristics determined by [facility]'s [facility] [place] (-[facility]). It has not been cleared or approved by the FDA. -[facility] is regulated under CLIA as qualified to perform high-complexity testing. This test is used for clinical purposes. It should not be regarded as investigational or for research. Performed By: #### CRET1, PROL, TSH, DHEAS, FSH, LH, HBA1C, INSULN, VITD, FTESTO #### [facility] [address] [place], [place] [address] GLUCOSE, FASTING Collected: 11/23/2017 Status: F Source: [place] 7:45 [facility] REPOSITORY TYPE CODE TESTS RESULT OUT OF REFERENCE UNITS RANGE LAB GLF 74-99 mg/dL Glucose, 98 Fasting Result Comment: [place] Diabetes Association guidelines state that a diabetes mellitus diagnosis is preliminarily made when the fasting plasma glucose meets or exceeds 126 mg/dL. In the absence of unequivocal hyperglycemia, results should be confirmed with repeat testing. Patients are at increased risk for diabetes mellitus (prediabetes) when the fasting glucose is 100 to 125 mg/dL. Performed By: #### GLF #### [facility] [address] [place], [place] [address] PROGRESS Observed: 11/22/2017 Status: COMPLETED Source: [place] 1:12 PM [facility] REPOSITORY HNO ID: [id number] Author: Annie Chavez Service: (none) Author Type: Physician Type: Progress Notes Filed: 12/22/2017 9:03 AM Note Text: Initial Pituitary Patient Assessment Form Meme Lara is a 31 year old female here today for an initial pituitary assessment Referred by: Name: Woodrow Greer MD Address: Phone: Fax: Current Outpatient Prescriptions: montelukast (SINGULAIR) 10 mg tablet omeprazole (PRILOSEC) 20 mg capsule triamterene-hydrochlorothiazide 37.5-25 mg per capsule Take 1 capsule by mouth once daily. fluticasone (FLONASE) 50 mcg/actuation nasal spray Use 2 Sprays in each nostril once daily. Rinse mouth after use. meloxicam (MOBIC) 15 mg tablet Take 1 tablet by mouth once daily. MICROGESTIN FE 1/20 1 mg-20 mcg (21)/75 mg (7) per tablet COMPOUNDED PRESCRIPTION control - unsure of name. meclizine (ANTIVERT) 12.5 mg tab Take 1 tablet by mouth every 6 hours as needed (dizziness). No current facility-administered medications for this visit. PAST MEDICAL HISTORY Diagnosis Date - Environmental allergies - GERD (gastroesophageal reflux disease) - HTN (hypertension) - NEGATIVE MEDICAL HISTORY PAST SURGICAL HISTORY Procedure Laterality Date - BREAST REDUCTION - TOOTH EXTRACTION FAMILY HISTORY Problem Relation Age of Onset - Hypertension Father - Breast Cancer Maternal Grandmother 60 - Cancer Maternal Grandfather History of Present Illness: Ms. 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 Gained 15-20 lbs in last 6 months, she has rounded face and mid line weight gain, no family h/o endocrine issues, no h/o blood sugar, has h/o HTN and taking meds since last January and on meds under control, no new striae, she went for sleep apnea study and loud snoring. Mild hirsutism, and also getting some acnes. Review of Systems: GENERAL: Fatigue yes, Malaise yes, Weight gained 10 lbs over 6 months HEAD AND NECK: Headaches Yes, occasional migraine, Visual Complaints No and Dizziness Yes, when she is squatting and standing up from squatting. CVS: Negative PULMONARY: Negative GI: Negative system: Polydispsia Yes, Nocturia Yes. 1-2 times per night, Polyuria NO and Ice cravings NO Sex / Menstruation / OB Hx: Libido normal, Impotence: NA, Hot Flashes: yes, couple of days a week, Puberty:normal, Menstrual History Regular and Hx of infertility no MUSCULOSKEL: leg cramp and restless legs at night OTHER: Galactorrhea: no Mood changes: no Diaphoresis: No Easy Bruising No Social History: Social History Marital status: Spouse name: Years of education: Number of children: Social History Main Topics Smoking status: Never Smoker Smokeless status: Never Used Alcohol use: Yes 3.0 oz/week 2 Cans of Beer (12oz) per week Drug use: No Sexual activity: Yes Partners with: Male Previous Pituitary Surgery: No Previous Radiotherapy: No Lab Value Units Date High Low TSH 2.240 uU/mL 01/28/2017 5.500 0.400 T4 No results within date range. FTI No results within date range. T3 No results within date range. FREET3 No results within date range. FREET4 No results within date range. FSH No results within date range. LH No results within date range. TESTFREE No results within date range. TESTOST No results within date range. PROL No results within date range. ALPSUB No results within date range. ILGF1 No results within date range. GH No results within date range. DHEAS No results within date range. ACTH No results within date range. COR0 No results within date range. COR30 No results within date range. COR60 No results within date range. Lab Value Units Date High Low ALT 14 U/L 01/28/2017 38 7 PHYSICAL EXAM BP 123/91 Pulse 110 Ht 5' 6.535 (1.69m) Wt 214 lb (97.1kg) SpO2 98% BMI 33.99 kg/(m2). HEADANDNECK Visual Field Defect no, Diplopia no, Cranial Nerve Palsy no, Pupils Symmetric Yes, Light Reflex Normal, Coarse Facial Features No, Acne Yes, , Justin Face Yes and Thryoid Normal size, SKIN Normal and Striae, NEURO Normal, no focal neurological deficit, MUSCULOSKELETAL Normal, CVS Normal, PULMONARY Normal, ABDOMEN Normal, BREAST DISCHARGE no and OBESITY Yes, Central Previous MRI/CT Scan: No RELEVENT LABS: Component Latest Ref Rng AND Units 01/28/2017 WBC 3.70 - 11.00 k/uL 8.67 RBC 3.90 - 5.20 m/uL 5.16 Hemoglobin 11.5 - 15.5 g/dL 14.4 Hematocrit 36.0 - 46.0 % 45.4 MCV 80.0 - 100.0 fL 88.0 MCH 26.0 - 34.0 pG 27.9 MCHC 30.5 - 36.0 g/dL 31.7 RDW-CV 11.5 - 15.0 % 13.8 Platelet Count 150 - 400 k/uL 320 MPV 9.0 - 12.7 fL 10.6 Neut% % 63.2 Abs Neut (ANC) 1.45 - 7.50 k/uL 5.48 Lymph% % 29.4 Abs Lymph 1.00 - 4.00 k/uL 2.55 Burke% % 4.8 Abs Burke 0.00 - 0.86 k/uL 0.42 Eosin% % 2.1 Abs Eosin 0.00 - 0.45 k/uL 0.18 Baso% % 0.5 Abs Baso 0.00 - 0.10 k/uL 0.04 Nucleated Reds 0 /100 WBC 0.0 NRBC 0 /100 WBC 0 Absolute nRBC k/uL 0.00 Diff Type Auto Diff Protein, Total 6.3 - 8.0 g/dL 8.0 Albumin 3.9 - 4.9 g/dL 4.2 Calcium 8.5 - 10.2 mg/dL 9.9 Bilirubin, Total 0.2 - 1.3 mg/dL 0.3 Alkaline Phosphatase 32 - 117 U/L 91 AST 13 - 35 U/L 20 Glucose 74 - 99 mg/dL 95 BUN 7 - 21 mg/dL 10 Creatinine 0.58 - 0.96 mg/dL 0.82 Sodium 136 - 144 mmol/L 135 (L) Potassium 3.7 - 5.1 mmol/L 4.6 Chloride 97 - 105 mmol/L 99 CO2 22 - 30 mmol/L 18 (L) Anion Gap 9 - 18 mmol/L 18 ALT 7 - 38 U/L 14 eGFR- >60 eGFR-All Other Races . >60 Triglyceride 30 - 149 mg/dL 269 (H) Cholesterol, Total 100 - 199 mg/dL 225 (H) HDL Cholesterol >55 mg/dL 37 (L) VLDL Cholesterol 6 - 40 mg/dL 54 (H) LDL Cholesterol 60 - 129 mg/dL 134 (H) Fasting Time hrs 12 TC:HDL Ratio 1.00 - 5.00 6.08 (H) LDL:HDL Ratio 0.50 - 3.55 3.62 (H) Non HDL Cholesterol 90 - 159 mg/dL 188 (H) TSH 0.400 - 5.500 uU/mL 2.240 Consult Patient is sent at the request of Dr. 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 My final recommendations will be communicated back to the requesting physician by way of shared Medical Record. 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 Exclude hypercortisolism. 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 Exclude hypothyroid and hypercortisolism. Diet, exercise and food supplement discussed. Plan: CORTISOL SALIVA, TSH BLD (R63.5) Abnormal weight gain Comment: pathophysiology AND treatment options discussed. Low card diet and exercise, as well as food supplements discussed in detail including drinks, snacks, mouth refreshments, and major meals, all questions related to her food and drinks answered. Exclude hypothyroid and hypercortisolism. Plan: CORTISOL SALIVA (I10) Essential hypertension Comment: clinically stable on current Rx. Plan: continue current Rx. Low salt Diet, exercise and food supplement discussed. (G47.9) Sleep disorder Comment: pathophysiology AND treatment options discussed. Plan: supportive care make a fixed bed time (go to bed everyday same time), exercise 4hrs before bed time, keep bed room temp slightly colder, take worm bath 45 mins before bed, stop watching TV or work on computer 1hr before bed time, no TV in the bed room, drink worm milk (low fat) before bed time, (R53.83) Lack of energy Comment: likely multifactorial Plan: exclude thyroid dysfunction, Vit D deficiency, optimize hydration and encourage regular exercise. (E55.9) Vitamin D deficiency Comment: check level AND Rx as needed. Plan: VITAMIN D 25 HYDROXY (E28.2) PCOS (polycystic ovarian syndrome) Comment: pathophysiology AND treatment options discussed. Obtain PCOS panel. Plan: CORTISOL SALIVA, TSH BLD, PROLACTIN BLD, DHEA-S BLD, TESTOSTERONE, FREE AND TOTAL, CREATININE BLD, FSH BLD, LUTEINIZING HORMONE, HGB A1C, INSULIN ASSAY BLOOD, GLUCOSE FASTING BLD, VITAMIN D 25 HYDROXY (L68.0) Hirsutism Comment: pathophysiology AND treatment options discussed. Exclude androgen excess. Plan: DHEA-S BLD, TESTOSTERONE, FREE AND TOTAL Spent 60 mins face to face ad >50% for pt counseling. Pathophysiology of hyperandrogenism, ovary versus adrenal, [place]-byjck-gsdrdpu axis, regulation of mens, role of androgen for sweating/acre/hirsutism/scalp hair loss, treatment options, how spironolactone work, teratogenic effect of spironolactone, need for contraception during use of spironolactone, all questions answered, Annie Chavez MD November 22, 2017 CNOV Observed: 11/22/2017 Status: COMPLETED Source: [place] 12:45 PM [facility] REPOSITORY Office Visit (GEGE) MEME LARA ([id number]) 1985 F Date Time Provider Department 11/22/17 12:45 PM ANNIE CHAVEZ During your visit today, we recorded the following information about you: Pulse Blood pressure Weight Height 110/minute 123/91 97.1 kg 1.69 m Annie Chavez MD 12/22/2017 9:03 AM Signed Initial Pituitary Patient Assessment Form Meme Lara is a 31 year old female here today for an initial pituitary assessment Referred by: Name: Woodrow Greer MD Address: Phone: Fax: Current Outpatient Prescriptions: montelukast (SINGULAIR) 10 mg tablet omeprazole (PRILOSEC) 20 mg capsule triamterene-hydrochlorothiazide 37.5-25 mg per capsule Take 1 capsule by mouth once daily. fluticasone (FLONASE) 50 mcg/actuation nasal spray Use 2 Sprays in each nostril once daily. Rinse mouth after use. meloxicam (MOBIC) 15 mg tablet Take 1 tablet by mouth once daily. MICROGESTIN FE 1/20 1 mg-20 mcg (21)/75 mg (7) per tablet COMPOUNDED PRESCRIPTION control - unsure of name. meclizine (ANTIVERT) 12.5 mg tab Take 1 tablet by mouth every 6 hours as needed (dizziness). No current facility-administered medications for this visit. PAST MEDICAL HISTORY Diagnosis Date - Environmental allergies - GERD (gastroesophageal reflux disease) - HTN (hypertension) - NEGATIVE MEDICAL HISTORY PAST SURGICAL HISTORY Procedure Laterality Date - BREAST REDUCTION - TOOTH EXTRACTION FAMILY HISTORY Problem Relation Age of Onset - Hypertension Father - Breast Cancer Maternal Grandmother 60 - Cancer Maternal Grandfather History of Present Illness: Ms. 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 Gained 15-20 lbs in last 6 months, she has rounded face and mid line weight gain, no family h/o endocrine issues, no h/o blood sugar, has h/o HTN and taking meds since last January and on meds under control, no new striae, she went for sleep apnea study and loud snoring. Mild hirsutism, and also getting some acnes. Review of Systems: GENERAL: Fatigue yes, Malaise yes, Weight gained 10 lbs over 6 months HEAD ANDamp; NECK: Headaches Yes, occasional migraine, Visual Complaints No and Dizziness Yes, when she is squatting and standing up from squatting. CVS: Negative PULMONARY: Negative GI: Negative system: Polydispsia Yes, Nocturia Yes. 1-2 times per night, Polyuria NO and Ice cravings NO Sex / Menstruation / OB Hx: Libido normal, Impotence: NA, Hot Flashes: yes, couple of days a week, Puberty:normal, Menstrual History Regular and Hx of infertility no MUSCULOSKEL: leg cramp and restless legs at night OTHER: Galactorrhea: no Mood changes: no Diaphoresis: No Easy Bruising No Social History: Social History Marital status: Spouse name: Years of education: Number of children: Social History Main Topics Smoking status: Never Smoker Smokeless status: Never Used Alcohol use: Yes 3.0 oz/week 2 Cans of Beer (12oz) per week Drug use: No Sexual activity: Yes Partners with: Male Previous Pituitary Surgery: No Previous Radiotherapy: No Lab Value Units Date High Low TSH 2.240 uU/mL 01/28/2017 5.500 0.400 T4 No results within date range. FTI No results within date range. T3 No results within date range. FREET3 No results within date range. FREET4 No results within date range. FSH No results within date range. LH No results within date range. TESTFREE No results within date range. TESTOST No results within date range. PROL No results within date range. ALPSUB No results within date range. ILGF1 No results within date range. GH No results within date range. DHEAS No results within date range. ACTH No results within date range. COR0 No results within date range. COR30 No results within date range. COR60 No results within date range. Lab Value Units Date High Low ALT 14 U/L 01/28/2017 38 7 PHYSICAL EXAM BP 123/91 Pulse 110 Ht 5' 6.535ANDquot; (1.69m) Wt 214 lb (97.1kg) SpO2 98% BMI 33.99 kg/(m2). HEADANDamp;NECK Visual Field Defect no, Diplopia no, Cranial Nerve Palsy no, Pupils Symmetric Yes, Light Reflex Normal, Coarse Facial Features No, Acne Yes, , Justin Face Yes and Thryoid Normal size, SKIN Normal and Striae, NEURO Normal, no focal neurological deficit, MUSCULOSKELETAL Normal, CVS Normal, PULMONARY Normal, ABDOMEN Normal, BREAST DISCHARGE no and OBESITY Yes, Central Previous MRI/CT Scan: No RELEVENT LABS: Component Latest Ref Rng ANDamp; Units 01/28/2017 WBC 3.70 - 11.00 k/uL 8.67 RBC 3.90 - 5.20 m/uL 5.16 Hemoglobin 11.5 - 15.5 g/dL 14.4 Hematocrit 36.0 - 46.0 % 45.4 MCV 80.0 - 100.0 fL 88.0 MCH 26.0 - 34.0 pG 27.9 MCHC 30.5 - 36.0 g/dL 31.7 RDW-CV 11.5 - 15.0 % 13.8 Platelet Count 150 - 400 k/uL 320 MPV 9.0 - 12.7 fL 10.6 Neut% % 63.2 Abs Neut (ANC) 1.45 - 7.50 k/uL 5.48 Lymph% % 29.4 Abs Lymph 1.00 - 4.00 k/uL 2.55 Burke% % 4.8 Abs Burke 0.00 - 0.86 k/uL 0.42 Eosin% % 2.1 Abs Eosin 0.00 - 0.45 k/uL 0.18 Baso% % 0.5 Abs Baso 0.00 - 0.10 k/uL 0.04 Nucleated Reds 0 /100 WBC 0.0 NRBC 0 /100 WBC 0 Absolute nRBC k/uL 0.00 Diff Type Auto Diff Protein, Total 6.3 - 8.0 g/dL 8.0 Albumin 3.9 - 4.9 g/dL 4.2 Calcium 8.5 - 10.2 mg/dL 9.9 Bilirubin, Total 0.2 - 1.3 mg/dL 0.3 Alkaline Phosphatase 32 - 117 U/L 91 AST 13 - 35 U/L 20 Glucose 74 - 99 mg/dL 95 BUN 7 - 21 mg/dL 10 Creatinine 0.58 - 0.96 mg/dL 0.82 Sodium 136 - 144 mmol/L 135 (L) Potassium 3.7 - 5.1 mmol/L 4.6 Chloride 97 - 105 mmol/L 99 CO2 22 - 30 mmol/L 18 (L) Anion Gap 9 - 18 mmol/L 18 ALT 7 - 38 U/L 14 eGFR- ANDgt;60 eGFR-All Other Races . ANDgt;60 Triglyceride 30 - 149 mg/dL 269 (H) Cholesterol, Total 100 - 199 mg/dL 225 (H) HDL Cholesterol ANDgt;55 mg/dL 37 (L) VLDL Cholesterol 6 - 40 mg/dL 54 (H) LDL Cholesterol 60 - 129 mg/dL 134 (H) Fasting Time hrs 12 TC:HDL Ratio 1.00 - 5.00 6.08 (H) LDL:HDL Ratio 0.50 - 3.55 3.62 (H) Non HDL Cholesterol 90 - 159 mg/dL 188 (H) TSH 0.400 - 5.500 uU/mL 2.240 Consult Patient is sent at the request of Dr. 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 My final recommendations will be communicated back to the requesting physician by way of shared Medical Record. 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 Exclude hypercortisolism. 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 Exclude hypothyroid and hypercortisolism. Diet, exercise and food supplement discussed. Plan: CORTISOL SALIVA, TSH BLD (R63.5) Abnormal weight gain Comment: pathophysiology ANDamp; treatment options discussed. Low card diet and exercise, as well as food supplements discussed in detail including drinks, snacks, mouth refreshments, and major meals, all questions related to her food and drinks answered. Exclude hypothyroid and hypercortisolism. Plan: CORTISOL SALIVA (I10) Essential hypertension Comment: clinically stable on current Rx. Plan: continue current Rx. Low salt Diet, exercise and food supplement discussed. (G47.9) Sleep disorder Comment: pathophysiology ANDamp; treatment options discussed. Plan: supportive care make a fixed bed time (go to bed everyday same time), exercise 4hrs before bed time, keep bed room temp slightly colder, take worm bath 45 mins before bed, stop watching TV or work on computer 1hr before bed time, no TV in the bed room, drink worm milk (low fat) before bed time, (R53.83) Lack of energy Comment: likely multifactorial Plan: exclude thyroid dysfunction, Vit D deficiency, optimize hydration and encourage regular exercise. (E55.9) Vitamin D deficiency Comment: check level ANDamp; Rx as needed. Plan: VITAMIN D 25 HYDROXY (E28.2) PCOS (polycystic ovarian syndrome) Comment: pathophysiology ANDamp; treatment options discussed. Obtain PCOS panel. Plan: CORTISOL SALIVA, TSH BLD, PROLACTIN BLD, DHEA-S BLD, TESTOSTERONE, FREE AND TOTAL, CREATININE BLD, FSH BLD, LUTEINIZING HORMONE, HGB A1C, INSULIN ASSAY BLOOD, GLUCOSE FASTING BLD, VITAMIN D 25 HYDROXY (L68.0) Hirsutism Comment: pathophysiology ANDamp; treatment options discussed. Exclude androgen excess. Plan: DHEA-S BLD, TESTOSTERONE, FREE AND TOTAL Spent 60 mins face to face ad ANDgt;50% for pt counseling. Pathophysiology of hyperandrogenism, ovary versus adrenal, Bmzfbzeyj-najpa-dpgkfpr axis, regulation of mens, role of androgen for sweating/acre/hirsutism/scalp hair loss, treatment options, how spironolactone work, teratogenic effect of spironolactone, need for contraception during use of spironolactone, all questions answered, Annie Chavez MD November 22, 2017 Referring Provider: WOODROW GREER [[id number]] Allergies As of Date: 11/22/2017 Noted Allergy Reaction STEROIDS (BETAMETHASONE DIPROPION*10/24/2015 2 - Rash Date Reviewed: 11/22/2017 Reviewed by: Kameron Koch MA - Fully Assessed Reason for Visit: Consult [173] Primary Visit Diagnosis:Cushingoid facies [R68.89] Other Visit Diagnoses:Constitutional obesity [E66.8] Abnormal weight gain [R63.5] Essential hypertension [I10] Sleep disorder [G47.9] Lack of energy [R53.83] Vitamin D deficiency [E55.9] PCOS (polycystic ovarian syndrome) [E28.2] Hirsutism [L68.0] Order(s):CORTISOL SALIVA [SQSCORT] Order #: [id number] STANDING TSH BLD [SQTSH] Order #: [id number] FUTURE PROLACTIN BLD [SQPROL] Order #: [id number] FUTURE DHEA-S BLD [SQDHEAS] Order #: [id number] FUTURE TESTOSTERONE, FREE AND TOTAL [SQFTESTO] Order #: [id number] FUTURE CREATININE BLD [SQCRET] Order #: [id number] FUTURE FSH BLD [SQFSH] Order #: [id number] FUTURE LUTEINIZING HORMONE [SQLH] Order #: [id number] FUTURE HGB A1C [ETNPX8H] Order #: [id number] FUTURE INSULIN ASSAY BLOOD [SQINSULN] Order #: [id number] FUTURE GLUCOSE FASTING BLD [SQGLF] Order #: [id number] FUTURE VITAMIN D 25 HYDROXY [SQVITD] Order #: [id number] FUTURE Prescriptions as of 11/22/2017 Sig: MONTELUKAST 10 MG TABLET OMEPRAZOLE 20 MG CAPSULE,DOROTHY* TRIAMTERENE 37.5 MG-HYDROCHLO* Take 1 capsule by mouth once * FLUTICASONE 50 MCG/ACTUATION * Use 2 Sprays in each nostril * MELOXICAM 15 MG TABLET Take 1 tablet by mouth once d* MICROGESTIN FE 09/25 (28) 1 MG* COMPOUNDED PRESCRIPTION control - unsure of nam* MECLIZINE 12.5 MG TABLET Take 1 tablet by mouth every * Medication notes this encounter MELOXICAM 15 MG TABLET >> Kameron Koch MA 11/22/2017 1:03 PM >> KAMERON KOCH MA Nov 22, 2017 1:03 PM D/c MICROGESTIN FE 09/25 (28) 1 MG-20 MCG (21)/75 MG (7) TABLET >> Kameron Koch MA 11/22/2017 1:02 PM >> KAMERON KOCH MA Nov 22, 2017 1:02 PM D/c COMPOUNDED PRESCRIPTION >> Kameron Koch MA 11/22/2017 1:01 PM >> KAMERON KOCH MA Nov 22, 2017 1:01 PM D/c MECLIZINE 12.5 MG TABLET >> Kameron Koch MA 11/22/2017 1:01 PM >> KAMERON KOCH MA Nov 22, 2017 1:01 PM D/c Problem List As Of Date 11/22/2017 Noted Resolved BPPV (benign paroxysmal positional vertigo) [H8*INVALID FOR* Essential hypertension, malignant [I10] INVALID FOR* Uncontrolled daytime somnolence [R40.0] INVALID FOR* Poor sleep hygiene [Z72.821] INVALID FOR* Disposition: Return in about 6 months (around 05/25/2018). Follow-up and Disposition History Recorded Encounter Status:Closed by ANNIE CHAVEZ MD on 12/22/17 PROGRESS Observed: 11/13/2017 Status: COMPLETED Source: [place] 3:41 AM [facility] [place] REPOSITORY HNO ID: [id number] Author: Kameron Lindquist-T Service: (none) Author Type: (none) Type: Progress Notes Filed: 11/13/2017 3:42 AM Note Text: Sleep Study Check-In Documentation Date: November 13, 2017 Name: Meme Lara Patient was accompanied by Self. Location: [place] Latex allergy: No Tape allergy: No Current medications were reviewed with the patient:Yes Sleep aid taken by patient for the sleep study: [place] of sleep aid: Melatonin (Did not bring for study) Procedure was explained to the patient and all questions were answered. PAP treatment discussed and shown to patient: Yes Knowledge Program (KP): KP was not completed in [facility] by patient and accepted Study type: Polysomnogram Adverse Event: No (If yes create a new abstract) SERS Event: No Comments: Patient was advised to follow up with their ordering provider regarding test results Kameron Santizo PROGRESS Observed: 11/03/2017 Status: COMPLETED Source: [place] 10:07 AM [facility] REPOSITORY HNO ID: [id number] Author: Woodrow Greer Service: (none) Author Type: Physician Type: Progress Notes Filed: 11/04/2017 9:54 AM Note Text: [facility] New Patient Evaluation PATIENT NAME: Meme Lara DATE OF SERVICE: November 03, 2017 CONSULTING PROVIDER: Alma Sorenson MD [address] [facility] [id number] REASON FOR CONSULT: Alma Sorenson sends the patient for an opinion about ALOK. My findings and recommendations will be transmitted electronically via shared medical record to the consulting provider. HPI: Meme Lara is a 31 year old female with PMH of HTN and BPPV. Sleep-related history: Pt reports loud snoring, daytime sleepiness, acid reflux, unrestful sleep, and active sleep where she has a lot of upper arm movement. SLEEP-WAKE SCHEDULE Bedtime: 830-930 PM. She does not have a hard time falling asleep. Latency: not very long Wake time: 545 AM, with an alarm. Nocturnal wakings: 3-4 times for BRB and reposition On weekends, she tends to stay up depending on activity in the PM and sleeps until 7 AM. Average total sleep time (in a 24 hour period): 7-8 hours. She does not take naps. SLEEP-RELATED DETAILS Preferred sleep position: side After falling asleep: She wakes up 4 time(s) per night, because of physical discomfort and the need to urinate. Breathing disturbances and other behaviors during sleep: snoring and moving around a lot. 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 She does not have difficulty with memory or concentration. She denies falling asleep or dozing off when driving. She does drink 1 caffeinated beverages per day. There has not been a recent change in weight. Excessive daytime sleepiness / fatigue is a problem. Excessive Daytime sleepiness/fatigue has been a problem for many years. There is no history of a viral illness or significant head injury prior to the start of daytime sleepiness. SLEEP DISORDER SYMPTOMS She does not report having an urge to move the legs in the evening (when resting) that is accompanied or caused by uncomfortable and/or unpleasant sensations in the legs. She has not been told that she has leg kicking during sleep. She denies any history of parasomnias. OTHER SLEEP BEHAVIORS/COMPLAINTS: Bruxism: No Anxiety or rumination: No GERD or aspiration: Yes Waking up with heart pounding or racing: No SLEEP FUNCTIONAL OUTCOME MEASURES Reviewed and uploaded. See end of note for questionnaire answers. PAST TREATMENTS: None PRIOR SLEEP STUDIES: A Polysomnogram performed on 05/31/17 revealed an AHI of 2.2; supine index of 6.4. IMPRESSION: This study neither confirms nor refutes a diagnosis of obstructive sleep apnea as HST does not measure certain types of respiratory events that can only be measured on an in-laboratory polysomnogram. RECOMMENDATIONS: This type of sleep study may underestimate the severity of sleep apnea. Recommend an in-laboratory polysomnogram if sleep apnea remains highly suspected. INTERPRETING PHYSICIAN: Minerva Tim M.D. OTHER RELEVANT LABS AND STUDIES: TSH 2.2 PAST MEDICAL HISTORY Diagnosis Date - NEGATIVE MEDICAL HISTORY No past surgical history on file. ACTIVE PROBLEM LIST Bppv (Benign Paroxysmal Positional Vertigo) Essential Hypertension, Malignant Uncontrolled Daytime Somnolence Poor Sleep Hygiene Allergies As of Date: 11/03/2017 Allergen Noted Reaction STEROIDS [BETAMETHASONE DIPROPION*10/24/2015 Rash Fully Assessed 11/03/2017 CURRENT MEDICATIONS: montelukast (SINGULAIR) 10 mg tablet omeprazole (PRILOSEC) 20 mg capsule triamterene-hydrochlorothiazide 37.5-25 mg per capsule Take 1 capsule by mouth once daily. meloxicam (MOBIC) 15 mg tablet Take 1 tablet by mouth once daily. MICROGESTIN FE / 1 mg-20 mcg (21)/75 mg (7) per tablet fluticasone (FLONASE) 50 mcg/actuation nasal spray Use 2 Sprays in each nostril once daily. Rinse mouth after use. COMPOUNDED PRESCRIPTION control - unsure of name. meclizine (ANTIVERT) 12.5 mg tab Take 1 tablet by mouth every 6 hours as needed (dizziness). REVIEW OF SYSTEMS SLEEP RELATED ROS GENERAL: See HPI HEENT: Positive nasal congestion RESPIRATORY: negative wheezing and dyspnea on exertion CARDIOVASCULAR: negative chest pain GI: negative nocturnal GERD and GERD : negative nocturia MUSCULOSKELETAL: negative generalized body pain SKIN: negative rash PSYCH: negative depression and anxiety positive stress ENDOCRINE: negative polyuria, polydipsia and thyroid problems NEURO: negative headaches All other systems reviewed and are negative. SOCIAL HISTORY Social History Substance Use Topics - Smoking status: Never Smoker - Smokeless tobacco: Never Used - Alcohol use 3.0 oz/week 2 Cans of Beer (12oz) per week FAMILY HISTORY FAMILY HISTORY Problem Relation Age of Onset - Hypertension Father - Breast Cancer Maternal Grandmother 60 - Cancer Maternal Grandfather There is no family history of sleep disorders. PHYSICAL EXAMINATION: Vital Signs: BP 131/89 (BP Site: Left Arm, BP Position: Sitting, BP Cuff Size: Large Adult) Pulse 98 Resp 16 Wt 95.7 kg (211 lb) BMI 33.55 kg/m2 PHYSICAL EXAM: General appearance: NAD, appropriate attire for season, round justin face structure, truncal obesity with thin legs. Mental status: Alert and oriented, good eye contact Speech: Logical and goal directed Constitutional: WNL Skin: Warm, dry, and intact Eyes: PERRLA ENT : Posterior airspace: Varghese tongue position 3, retrognathia prebsent. Overbite absent. High arched palate absent. Tongue scalloping/ridging absent. 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 Sleep-related history includes loud snoring, daytime sleepiness, acid reflux, unrestful sleep, and active sleep where she has a lot of upper arm movement. Some concern for endocrinology factor affecting sleep based on whitney's type appearance and daytime sleepiness, want to rule out multifactorial causes. - Polysomnogram (PSG) to evaluate for obstructive sleep apnea. - Discussed with the patient the possible diagnosis, causes, and conditions associated with obstructive sleep apnea. - Avoid driving when drowsy. Recommend that if you are dozing off while driving, that you do not drive until your sleepiness is appropriately treated. - Call or send a [email or web address] message after you have completed the sleep study. Results are usually available within 2-4 business days. If you do not hear from us within 1 week after testing, please contact us directly. - Consult placed to Endocrinology with concern for Whitney disease based on appearance and presenting symptoms. Follow up in 3 month(s). Shannon Montenegro, ROSALINE I have interviewed the patient and personally confirmed all pertinent aspects of the history and physical examination. The Nurse Practitioner reviewed the case fully. On my exam, pt was Euthy in mood and affect, was awake, alert, and coherent, with good gait and station. Class 3 airway. I agree that pt's overall facial provile is suggestive of [place]'s; Pt gives the history that this change has been relatively recent in the past 2 years. While the TSH is normal, we should refer to Endocrinology to assess for other occult endocrine problems - were they to be present, we would want them now to be addressed, as they may be related to weight gain that might affect ALOK management. As to the HSAT results, these are non-conclusive in rulling out Alok in the setting of anatomic factors that might suggest ALOK. PSG is now the next step. I participated in the management of the patient and agree with assessment and plan as documented by the Nurse Practitioner. Woodrow Greer M.D. CNOV Observed: 11/03/2017 Status: COMPLETED Source: [place] 9:40 AM [facility] REPOSITORY Office Visit (NEMOWS) MEME LARA ([id number]) 1985 F Date Time Provider Department 11/03/17 9:40 AM WOODROW GREER N[facility] During your visit today, we recorded the following information about you: Pulse Respiration Blood pressure Weight 98/minute 16/minute 131/89 95.7 kg Woodrow Greer MD 11/04/2017 9:54 AM Signed [facility] New Patient Evaluation PATIENT NAME: Meme Lara DATE OF SERVICE: November 03, 2017 CONSULTING PROVIDER: Alma Sorenson MD [address] [facility] [id number] REASON FOR CONSULT: Alma Sorenson sends the patient for an opinion about ALOK. My findings and recommendations will be transmitted electronically via shared medical record to the consulting provider. HPI: Meme Lara is a 31 year old female with PMH of HTN and BPPV. Sleep-related history: Pt reports loud snoring, daytime sleepiness, acid reflux, unrestful sleep, and active sleep where she has a lot of upper arm movement. SLEEP-WAKE SCHEDULE Bedtime: 830-930 PM. She does not have a hard time falling asleep. Latency: not very long Wake time: 545 AM, with an alarm. Nocturnal wakings: 3-4 times for BRB and reposition On weekends, she tends to stay up depending on activity in the PM and sleeps until 7 AM. Average total sleep time (in a 24 hour period): 7-8 hours. She does not take naps. SLEEP-RELATED DETAILS Preferred sleep position: side After falling asleep: She wakes up 4 time(s) per night, because of physical discomfort and the need to urinate. Breathing disturbances and other behaviors during sleep: snoring and moving around a lot. 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 She does not have difficulty with memory or concentration. She denies falling asleep or dozing off when driving. She does drink 1 caffeinated beverages per day. There has not been a recent change in weight. Excessive daytime sleepiness / fatigue is a problem. Excessive Daytime sleepiness/fatigue has been a problem for many years. There is no history of a viral illness or significant head injury prior to the start of daytime sleepiness. SLEEP DISORDER SYMPTOMS She does not report having an urge to move the legs in the evening (when resting) that is accompanied or caused by uncomfortable and/or unpleasant sensations in the legs. She has not been told that she has leg kicking during sleep. She denies any history of parasomnias. OTHER SLEEP BEHAVIORS/COMPLAINTS: Bruxism: No Anxiety or rumination: No GERD or aspiration: Yes Waking up with heart pounding or racing: No SLEEP FUNCTIONAL OUTCOME MEASURES Reviewed and uploaded. See end of note for questionnaire answers. PAST TREATMENTS: None PRIOR SLEEP STUDIES: A Polysomnogram performed on 05/31/17 revealed an AHI of 2.2; supine index of 6.4. IMPRESSION: This study neither confirms nor refutes a diagnosis of obstructive sleep apnea as HST does not measure certain types of respiratory events that can only be measured on an in-laboratory polysomnogram. RECOMMENDATIONS: This type of sleep study may underestimate the severity of sleep apnea. Recommend an in-laboratory polysomnogram if sleep apnea remains highly suspected. INTERPRETING PHYSICIAN: Minerva Tim M.D. OTHER RELEVANT LABS AND STUDIES: TSH 2.2 PAST MEDICAL HISTORY Diagnosis Date - NEGATIVE MEDICAL HISTORY No past surgical history on file. ACTIVE PROBLEM LIST Bppv (Benign Paroxysmal Positional Vertigo) Essential Hypertension, Malignant Uncontrolled Daytime Somnolence Poor Sleep Hygiene Allergies As of Date: 11/03/2017 Allergen Noted Reaction STEROIDS [BETAMETHASONE DIPROPION*10/24/2015 Rash Fully Assessed 11/03/2017 CURRENT MEDICATIONS: montelukast (SINGULAIR) 10 mg tablet omeprazole (PRILOSEC) 20 mg capsule triamterene-hydrochlorothiazide 37.5-25 mg per capsule Take 1 capsule by mouth once daily. meloxicam (MOBIC) 15 mg tablet Take 1 tablet by mouth once daily. MICROGESTIN FE /20 1 mg-20 mcg (21)/75 mg (7) per tablet fluticasone (FLONASE) 50 mcg/actuation nasal spray Use 2 Sprays in each nostril once daily. Rinse mouth after use. COMPOUNDED PRESCRIPTION control - unsure of name. meclizine (ANTIVERT) 12.5 mg tab Take 1 tablet by mouth every 6 hours as needed (dizziness). REVIEW OF SYSTEMS SLEEP RELATED ROS GENERAL: See HPI HEENT: Positive nasal congestion RESPIRATORY: negative wheezing and dyspnea on exertion CARDIOVASCULAR: negative chest pain GI: negative nocturnal GERD and GERD : negative nocturia MUSCULOSKELETAL: negative generalized body pain SKIN: negative rash PSYCH: negative depression and anxiety positive stress ENDOCRINE: negative polyuria, polydipsia and thyroid problems NEURO: negative headaches All other systems reviewed and are negative. SOCIAL HISTORY Social History Substance Use Topics - Smoking status: Never Smoker - Smokeless tobacco: Never Used - Alcohol use 3.0 oz/week 2 Cans of Beer (12oz) per week FAMILY HISTORY FAMILY HISTORY Problem Relation Age of Onset - Hypertension Father - Breast Cancer Maternal Grandmother 60 - Cancer Maternal Grandfather There is no family history of sleep disorders. PHYSICAL EXAMINATION: Vital Signs: BP 131/89 (BP Site: Left Arm, BP Position: Sitting, BP Cuff Size: Large Adult) Pulse 98 Resp 16 Wt 95.7 kg (211 lb) BMI 33.55 kg/m2 PHYSICAL EXAM: General appearance: NAD, appropriate attire for season, round justin face structure, truncal obesity with thin legs. Mental status: Alert and oriented, good eye contact Speech: Logical and goal directed Constitutional: WNL Skin: Warm, dry, and intact Eyes: PERRLA ENT : Posterior airspace: Varghese tongue position 3, retrognathia prebsent. Overbite absent. High arched palate absent. Tongue scalloping/ridging absent. 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 Sleep-related history includes loud snoring, daytime sleepiness, acid reflux, unrestful sleep, and active sleep where she has a lot of upper arm movement. Some concern for endocrinology factor affecting sleep based on whitney's type appearance and daytime sleepiness, want to rule out multifactorial causes. - Polysomnogram (PSG) to evaluate for obstructive sleep apnea. - Discussed with the patient the possible diagnosis, causes, and conditions associated with obstructive sleep apnea. - Avoid driving when drowsy. Recommend that if you are dozing off while driving, that you do not drive until your sleepiness is appropriately treated. - Call or send a [email or web address] message after you have completed the sleep study. Results are usually available within 2-4 business days. If you do not hear from us within 1 week after testing, please contact us directly. - Consult placed to Endocrinology with concern for [place] disease based on appearance and presenting symptoms. Follow up in 3 month(s). Shannon Montenegro, ROSALINE I have interviewed the patient and personally confirmed all pertinent aspects of the history and physical examination. The Nurse Practitioner reviewed the case fully. On my exam, pt was Euthy in mood and affect, was awake, alert, and coherent, with good gait and station. Class 3 airway. I agree that pt's overall facial provile is suggestive of Whitney's; Pt gives the history that this change has been relatively recent in the past 2 years. While the TSH is normal, we should refer to Endocrinology to assess for other occult endocrine problems - were they to be present, we would want them now to be addressed, as they may be related to weight gain that might affect ALOK management. As to the HSAT results, these are non-conclusive in rulling out Alok in the setting of anatomic factors that might suggest ALOK. PSG is now the next step. I participated in the management of the patient and agree with assessment and plan as documented by the Nurse Practitioner. Woodrow Greer M.D. Referring Provider: ALMA SORENSON [[id number]] Allergies As of Date: 11/03/2017 Noted Allergy Reaction STEROIDS (BETAMETHASONE DIPROPION*10/24/2015 2 - Rash Date Reviewed: 11/03/2017 Reviewed by: Shannon (Rosaline) ROSALINE Montenegro - Fully Assessed Reason for Visit: Established Patient [175] Primary Visit Diagnosis:Excessive daytime sleepiness [G47.19] Other Visit Diagnoses:Snoring [R06.83] Other fatigue [R53.83] Whitney's syndrome (HCC) [E24.9] Comment:concern for Order(s):CONSULT TO ENDOCRINOLOGY [9007] Order #: [id number]: 1 POLYSOMNOGRAM (PSG)/HOME SLEEP APNEA TESTING (HSAT) [4990400] Order #: [id number] FUTURE Prescriptions as of 11/03/2017 Sig: MONTELUKAST 10 MG TABLET OMEPRAZOLE 20 MG CAPSULE,DOROTHY* TRIAMTERENE 37.5 MG-HYDROCHLO* Take 1 capsule by mouth once * MELOXICAM 15 MG TABLET Take 1 tablet by mouth once d* MICROGESTIN FE 09/25 () 1 MG* FLUTICASONE 50 MCG/ACTUATION * Use 2 Sprays in each nostril * COMPOUNDED PRESCRIPTION control - unsure of nam* MECLIZINE 12.5 MG TABLET Take 1 tablet by mouth every * Medication notes this encounter MONTELUKAST 10 MG TABLET >> Shannon Montenegro CNP, C* 11/03/2017 10:15 AM >> SHANNON MONTENEGRO WedNov 03, 2017 10:15 AM Received from: External Pharmacy OMEPRAZOLE 20 MG CAPSULE,DELAYED RELEASE >> Shannon Montenegro CNP, C* 11/03/2017 10:15 AM >> SHANNON MONTENEGRO WedNov 03, 2017 10:15 AM Received from: External Pharmacy Problem List As Of Date 11/03/2017 Noted Resolved BPPV (benign paroxysmal positional vertigo) [H8*INVALID FOR* Essential hypertension, malignant [I10] INVALID FOR* Uncontrolled daytime somnolence [R40.0] INVALID FOR* Poor sleep hygiene [Z72.821] INVALID FOR* Disposition: Return in about 3 months (around 01/31/2018). Follow-up and Disposition History Recorded Encounter Status:Closed by MD WOODROW GREER on 11/04/17 ALLERGIES ALLERGIES DATE TYPE / CODE NAME / CODE REACTION SEVERITY SOURCE Miscellaneous STERIODS Other Unknown [facility] [facility] Allergy/[id number]( Community SNOMED CT) [facility] Repository DRUG BETAMETHASONE RASH [place] [facility] INGREDI/[id number]( DIPROPIONATE Clinic Main SNOMED CT) [place] Repository ENCOUNTERS ENCOUNTERS ADMIT/DISCHARGE ACCOUNT ADMITTING ENCOUNTER LOCATION SOURCE NUMBER CLASS 09/22/2018 [id number] Ambulatory [facility] ing:[facility] Repository 08/10/2018/08/18/20 [id number] Ambulatory [address] Main [place] Repository 08/06/2018/08/06/20 [id number] Ambulatory [address] Main [place] Repository 02/10/2018/02/11/20 [id number] Ambulatory [address] Main [place] Repository 02/03/2018/02/05/20 [id number] Ambulatory [address] Main [place] Repository 02/02/2018/02/04/20 [id number] Ambulatory [address] Main [place] Repository 01/27/2018/01/28/20 [id number] Ambulatory [address] Main [place] Repository 12/01/2017/12/02/19 [id number] Ambulatory [address] Main [place] Repository 11/23/2017/11/24/19 [id number] Ambulatory [address] Main [place] Repository 11/22/2017/11/23/19 [id number] Ambulatory [address] Main [place] Repository 11/12/2017/11/25/19 [id number] Ambulatory [address] Other [place] Repository 11/03/2017/11/06/19 [id number] Ambulatory [address] Main [place] Repository PAYERS PAYERS ENCOUNTER GUARANTOR PAYER SUBSCRIBER SOURCE 09/22/2018 MEME [id number] Primary MEME [place] [address] [place] Insurance:ANTHEMPolic [place]IRTHDOB: [place] Number: [id number] [facility] [address]Pnn: (943) [id number] Repository [phone] () Date:[id number] [place]ONAL [id number], [place] [address]TP: 09/22/2018 Secondary NOT GIVENUNK Ynes Insurance:SELF PAY [facility] Number: Effective Repository Date:2018-09-22
== END ==
PROVIDERS: Visit Provider Obstetrics & Gynecology
DX: Z36.85 Encounter for antenatal screening for Streptococcus B (principal)
CPT/HCPCS: 87077; 87081; 87186

== ENCOUNTER 2018-10-14 18:40 | Outpatient (CLI) | payer BC, SELFPAY ==
[2018-10-14 19:05] VITALS: BMI 35.4
[2018-10-14 20:02] LABS: ROM Internal Control Test YES-OK TO RESULT pt. (Internal QC); ROM Patient Test Negative (Negative); Record Kit Lot#, ROM+ J7836
--- NOTE | 2018-10-14 21:25 | OB.TRI.NOTE ---
- Problem List (1) 39 weeks gestation of Status: Acute (2) False labor Status: Acute History of Present Illness Date of Service: 10/14/18 Reason For Visit: R/O SROM Final NADINE: 10/15/18 Gestational age: 39 Weeks and 6 Days Allergies STERIODS Allergy (Mild, Uncoded 10/14/18 19:26) Other MY FACE/chest GOT RED benadryl helped Laboratory Studies: Laboratory Tests 10/14/18 Range/Units 19:10 Vag Amniotic Fld Detect Negative (Negative) Physical Exam Vitals: AVSS NST - FHR Rate Baby A Baseline: 130 Variability:: Moderate Accelerations:: 15 x 15 Decelerations:: None NST Reactive:: Yes FHR Category:: Category I Uterine Activity:: 2-3/10 Impression/Plan 32yo G1 @ 39 6/7wga with false labor, Cat I FHR -d/c home
== END 2018-10-14 20:30 | disposition home or self-care (01) ==
LOC: WPOUT 18:56 → WP 18:57
PROVIDERS: Family Provider Family Medicine; PCP Family Medicine; Referring Provider Obstetrics & Gynecology; Visit Provider Obstetrics & Gynecology
DX: O47.1 False labor at or after 37 completed weeks of gestation (principal); Z3A.39 39 weeks gestation of pregnancy
CPT/HCPCS: 59025; 59050; 84112; 99218; G0378

== ENCOUNTER → 2018-10-17 11:56 | Outpatient (CLI) | payer BC, SELFPAY ==
[2018-10-14 19:05] VITALS: BMI 35.4
[2018-10-17 14:29] LABS: Hemoglobin 12.7 g/dl (12.0-15.0); International Normalized Ratio 0.9; Mean Corp Hgb Conc 32.6 g/gl (32-36); Mean Corpuscular Hgb 27.9 pg (27.0-32.0); Mean Corpuscular Volume 85.7 fL (81-99); Mean Platelet Vol. 11.6 fl (6.2-12.0); Platelet Count 233 K/mm3 (150-450); Prothrombin Time (Protime)PT. 12.1 SECONDS (11.7-14.9); RBC Distribution Width CV 15.8 % (11.6-14.6); RBC Distribution Width SD 49.4 fl (35.1-43.9); Red Blood Count 4.55 M/mm3 (4.2-5.4); White Blood Count 13.4 K/mm3 (4.4-11.0)
[2018-10-17 14:30] LABS: Partial Thromboplast Time 24.7 Seconds (24.1-36.2); Scan Indicated on CBC? Y/N NO
[2018-10-17 14:48] LABS: AST(SGOT) 13 U/L (15-37); Alanine Aminotransfer ALT/SGPT 16 U/L (13-56); Creatinine, Serum 0.76 mg/dL (0.55-1.02); EST Glomerular Filtration Rate 93 mL/min (>60); Est Glom Filt Rate - Afr Amer 112 mL/min (>60); Uric Acid 5.8 mg/dL (2.6-6.0)
== END ==
PROVIDERS: Family Provider Family Medicine; PCP Family Medicine; Visit Provider Obstetrics & Gynecology
DX: Z34.83 Encounter for supervision of other normal pregnancy, third trimester (principal); O13.3 Gestational [pregnancy-induced] hypertension without significant proteinuria, third trimester; Z3A.00 Weeks of gestation of pregnancy not specified
CPT/HCPCS: 36415; 82565; 84450; 84460; 84550; 85027; 85610; 85730

== ENCOUNTER → 2018-10-18 11:41 | Outpatient (CLI) | payer BC, SELFPAY ==
[2018-10-14 19:05] VITALS: BMI 35.4
[2018-10-18 13:53] LABS: 24 Hour Urine Protein 205.2 mg/24HR (<150 MG/24HR); 24HR. UA Prot. Total Volume 2475 mL; Urine Protein (24 Hour) 7.6 mg/dL (<11.9)
== END ==
PROVIDERS: Visit Provider Obstetrics & Gynecology
DX: Z34.83 Encounter for supervision of other normal pregnancy, third trimester (principal); O13.3 Gestational [pregnancy-induced] hypertension without significant proteinuria, third trimester; Z3A.00 Weeks of gestation of pregnancy not specified
CPT/HCPCS: 81050; 84156

== ENCOUNTER 2018-10-19 18:58 | Inpatient (IN) | payer BC, SELFPAY ==
[2017-01-10 20:57] VITALS: BMI 33.2
[2018-10-19 19:06] VITALS: BMI 34.9
[2018-10-19] MEDS: Lactated Ringers 1,000 ML 50 ML IV (19:36)
[2018-10-19 19:45] LABS: Hematocrit 37.1 % (37-47); Hemoglobin 12.4 g/dl (12.0-15.0); Mean Corp Hgb Conc 33.4 g/gl (32-36); Mean Corpuscular Hgb 27.9 pg (27.0-32.0); Mean Corpuscular Volume 83.6 fL (81-99); Mean Platelet Vol. 11.2 fl (6.2-12.0); Platelet Count 241 K/mm3 (150-450); RBC Distribution Width CV 15.3 % (11.6-14.6); RBC Distribution Width SD 47.1 fl (35.1-43.9); Red Blood Count 4.44 M/mm3 (4.2-5.4); White Blood Count 13.3 K/mm3 (4.4-11.0)
[2018-10-19 19:47] LABS: Scan Indicated on CBC? Y/N NO
[2018-10-19] MEDS: Oxytocin 30 units/NS 500 ml 30 UNITS/500 ML IV.SOLN IV (20:03)
[2018-10-19 21:10] LABS: AST(SGOT) 20 U/L (15-37); Alanine Aminotransfer ALT/SGPT 21 U/L (13-56); Creatinine, Serum 0.81 mg/dL (0.55-1.02); EST Glomerular Filtration Rate 86 mL/min (>60); Est Glom Filt Rate - Afr Amer 104 mL/min (>60); Estimated Creatinine Clearance 92.48 ml/min; Uric Acid 6.1 mg/dL (2.6-6.0)
[2018-10-19 21:15] LABS: International Normalized Ratio 0.9; Prothrombin Time (Protime)PT. 12.2 SECONDS (11.7-14.9)
[2018-10-19 21:16] LABS: Partial Thromboplast Time 24.3 Seconds (24.1-36.2)
[2018-10-20] VITALS (9 sets, daily range): BP systolic 110–136; BP diastolic 54–75; PULSE 67–75; RESP 14–18; TEMP 36–36.2; O2SAT 97–98
[2018-10-20] MEDS: Lactated Ringers 1,000 ML 50 ML IV ×4 (01:19→15:56)
--- NOTE | 2018-10-20 09:00 | PCM.PN.OB ---
Subjective: Feeling contractions somewhat but not strongly. No headaches or other signs of preeclampsia. Objective: BPs stable FHR tracing reassuring. - Physical Exam General: Alert, Oriented x3, Cooperative, No apparent distress Lungs: Clear to auscultation, Normal air movement Cardiovascular: Regular rate, Regular Rhythm Abdomen: Soft, Non Tender, Non-Distended, Gravid, Appropriate for Gestational Age Extremities: No edema, No Calf Tenderness Skin: No rashes Neurological: Neuro grossly intact Psych/Mental Status: Normal Affect Comment: CE 2-3 cm 50% high Weight: 216 lb 11.43 oz Body Mass Index (BMI) 34.9 Laboratory Tests Past 24 Hrs 10/19/18 10/19/18 10/19/18 19:30 19:30 19:30 WBC 13.3 H RBC 4.44 Hgb 12.4 Hct 37.1 MCV 83.6 MCH 27.9 MCHC 33.4 RDW 15.3 H RDW Differential 47.1 H Plt Count 241 MPV 11.2 PT 12.2 INR 0.9 APTT 24.3 Creatinine Estim Creat Clear Calc Est GFR (MDRD) Af Amer Est GFR (MDRD) Non-Af Uric Acid AST ALT Blood Type O POSITIVE Antibody Screen NEGATIVE 10/19/18 19:30 WBC RBC Hgb Hct MCV MCH MCHC RDW RDW Differential Plt Count MPV PT INR APTT Creatinine 0.81 Estim Creat Clear Calc 92.48 Est GFR (MDRD) Af Amer 104 Est GFR (MDRD) Non-Af 86 Uric Acid 6.1 H AST 20 ALT 21 Blood Type Antibody Screen Medical Necessity - Tobacco Use Smoking Status: Never smoker Assessment/Plan All Active Problems 39 weeks gestation of (Acute) False labor (Acute) Elevated BP without diagnosis of hypertension (Acute) Pharyngitis (Acute) Obesity (BMI 30.0-34.9) (Acute) Sepsis (Acute) Sinus tachycardia (Acute) Sinusitis (Acute) AROM performed with clear fluid noted. MANOJ and IUPC placed. Pitocin at 12 mu/min. Will titrate pitocin to affect adequate contractions. BPs stable.
--- NOTE | 2018-10-20 09:25 | NURSING ---
Spoke with Corinne GUZMAN at office, informed we did not have Hepatitis B labwork, she looked it up and is faxing it to the unit. HEP B negative on 03/15/18 Hep C not done.
[2018-10-20] MEDS: hydroCHLOROthiazide 25 MG Tablet PO (10:36)
--- NOTE | 2018-10-20 12:10 | PCM.PN.OB ---
Subjective: Not feeling contractions strongly. Objective: Afeb VSS. FHR tracing Cat 1. - Physical Exam General: Alert, Oriented x3, Cooperative, No apparent distress Lungs: Clear to auscultation, Normal air movement Cardiovascular: Regular rate, Regular Rhythm Abdomen: Non Tender, Gravid, Appropriate for Gestational Age Extremities: No edema Skin: No rashes Neurological: Neuro grossly intact Psych/Mental Status: Normal Affect Comment: CE 2-3/80%/-3 Weight: 216 lb 11.43 oz Body Mass Index (BMI) 34.9 Laboratory Tests Past 24 Hrs 10/19/18 10/19/18 10/19/18 19:30 19:30 19:30 WBC 13.3 H RBC 4.44 Hgb 12.4 Hct 37.1 MCV 83.6 MCH 27.9 MCHC 33.4 RDW 15.3 H RDW Differential 47.1 H Plt Count 241 MPV 11.2 PT 12.2 INR 0.9 APTT 24.3 Creatinine Estim Creat Clear Calc Est GFR (MDRD) Af Amer Est GFR (MDRD) Non-Af Uric Acid AST ALT Blood Type O POSITIVE Antibody Screen NEGATIVE 10/19/18 19:30 WBC RBC Hgb Hct MCV MCH MCHC RDW RDW Differential Plt Count MPV PT INR APTT Creatinine 0.81 Estim Creat Clear Calc 92.48 Est GFR (MDRD) Af Amer 104 Est GFR (MDRD) Non-Af 86 Uric Acid 6.1 H AST 20 ALT 21 Blood Type Antibody Screen Medical Necessity - Tobacco Use Smoking Status: Never smoker Assessment/Plan All Active Problems 39 weeks gestation of (Acute) False labor (Acute) Elevated BP without diagnosis of hypertension (Acute) Pharyngitis (Acute) Obesity (BMI 30.0-34.9) (Acute) Sepsis (Acute) Sinus tachycardia (Acute) Sinusitis (Acute) No significant cervical dilation but cervix is thinning. Contractions not registering well on IUPC or may be of low intensity. Will allow to have lunch and give 30 minute pitocin break then restart pitocin at 8 mu/min/.
[2018-10-20] MEDS: Ondansetron 4 MG/2 ML Vial IV (12:47)
[2018-10-20] MEDS: Acetaminophen 325 MG Tablet PO ×2 (15:19→19:55)
[2018-10-20] MEDS: Oxytocin 30 units/NS 500 ml 30 UNITS/500 ML IV.SOLN IV (18:37)
[2018-10-20] MEDS: 0.9% Saline Lock 10 ML Syringe IV (18:37)
[2018-10-20] MEDS: Sodium Citrate/Citric Acid 30 ML UDC PO (20:38)
--- NOTE | 2018-10-20 20:44 | PCM.OPRPT ---
Report of Operation Date of Procedure: 10/20/18 Pre-Operative Diagnosis: Failure to Progress and Increasing Stress Post-Operative Diagnosis: Failure to Progress and Increasing Stress; Cephalopelvic Disproportion and Macrosomia Surgery/Procedure Performed:: Primary Low Transverse Cervical Section Description of Surgical Findings:: Viable male infant with Apgars of 8/9 and an occiput anterior presentation with clear amniotic fluid and normal three-vessel placenta. Baby weighed 10 pounds 3 ounces. 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 The patient progressed to 3-4 cm 95% effaced with high station but despite an intrauterine pressure monitor in place and Pitocin levels as high as 16 the baby's head failed to descend and cervix failed to dilate over a period of more than 8 hours. Further, anytime Pitocin levels were increased heart tones became nonreactive with occasional late decelerations noted. Two different pitocin breaks were taken in an attempt to make Pitocin more effective but despite this contractions were minimal with little effect on the patient. Given no progression over more than 8 hours, rupture of membranes nearly 12 hours, and intermittent nonreassuring heart tones it was decided to proceed with section for failure to progress and increasing stress. The patient has been counseled regarding the risk and indications of this procedure including the possibility of bleeding infection and injury to surrounding structures such as bowel bladder. All questions were answered. Procedure: Patient was taken to the operating room where after spinal anesthesia was placed, the patient was prepped and draped in usual sterile fashion and a Menendez catheter was placed. The abdomen was entered through a Pfannenstiel incision and peritoneum was entered bluntly. After developing a bladder flap on the lower uterine segment a low transverse incision was made on the uterus and head was delivered onto the operative field the nose mouth and oropharynx were bulb suctioned. Subsequently a viable male infant was born with Apgars of 8/9. The infant was noted to cry move all extremities vigorously on the operative field. The umbilical cord was doubly clamped and ligated and handed to the nursery personnel who were present for the delivery. Placenta was delivered and noted to be 3 vessels and normal. Uterus was exteriorized and remaining placental tissue was removed. The uterus was then closed in 2 layers first with running locked 0 Vicryl suture followed by a second imbricating layer with 0 Vicryl suture. 0 Vicryl suture was then used in a horizontal mattress interrupted fashion to affect final hemostasis of the uterine incision line. Normal fallopian tubes and ovaries were visualized and the uterus was returned to the pelvis. Hemostasis was noted and rectus abdominis muscles were reapproximated in the midline with interrupted Number 0 Vicryl suture in a horizontal mattress fashion. Fascia was closed with running Number 1 PDS Strata fix suture. Subcutaneous tissue was irrigated with copious amouts of saline solution and then closed with running 3-0 Vicryl suture. Skin was closed with 4-0 monocryl suture in a running subcuticular fashion. Steri strips, telfa, and tape were placed across the incision. The patient tolerated the procedure well and was taken to the recovery room in satisfactory condition. Sponge, needle, and instrument counts were all reportedly correct. EBL was less than 500 cc. Ancef 2 gms IV was given prior to the procedure. Grafts/Implants Used: None - Complications None - Admit VTE Documentation VTE Present on Admission: Yes VTE Mechan Device Prophylaxis: SCD's
--- NOTE | 2018-10-20 20:50 | OP.PCM_ITS ---
Report of Operation Date of Procedure: 10/20/18 Pre-Operative Diagnosis: Failure to Progress and Increasing Stress Post-Operative Diagnosis: Failure to Progress and Increasing Stress; Cephalopelvic Disproportion and Macrosomia Surgery/Procedure Performed:: Primary Low Transverse Cervical Section Description of Surgical Findings:: Viable male infant with Apgars of 8/9 and an occiput anterior presentation with clear amniotic fluid and normal three-vessel placenta. Baby weighed 10 pounds 3 ounces. scientific artist: Servando Cardona Type of Anesthesia:: Spinal - With Duramorph Anesthesiologist: Sai Salmon Specimen's removed: Placenta to [facility] Drains: Emnendez to straight drain Estimated Blood Loss (mL): 500 cc Fluids Replaced: Crystalloid Description of Procedure: Surgeon: Madi Marks MD, FACOG Indication: This is a 32-year-old who presented for induction last evening for -induced hypertension. The patient progressed to 3-4 cm 95% effaced with high station but despite an intrauterine pressure monitor in place and Pitocin levels as high as 16 the baby's head failed to descend and cervix failed to dilate over a period of more than 8 hours. Further, anytime Pitocin levels were increased heart tones became nonreactive with occasional late decelerations noted. Two different pitocin breaks were taken in an attempt to make Pitocin more effective but despite this contractions were minimal with little effect on the patient. Given no progression over more than 8 hours, rupture of membranes nearly 12 hours, and intermittent nonreassuring heart tones it was decided to proceed with section for failure to progress and increasing stress. The patient has been counseled regarding the risk and indications of this procedure including the possibility of bleeding infectio n and injury to surrounding structures such as bowel bladder. All questions were answered. Procedure: Patient was taken to the operating room where after spinal anesthesia was placed, the patient was prepped and draped in usual sterile fashion and a Menendez catheter was placed. The abdomen was entered through a Pfannenstiel incision and peritoneum was entered bluntly. After developing a bladder flap on the lower uterine segment a low transverse incision was made on the uterus and head was delivered onto the operative field the nose mouth and oropharynx were bulb suctioned. Subsequently a viable male was born with Apgars of 8/9. The infant was noted to cry move all extremities vigorously on the operative field. The umbilical cord was doubly clamped and ligated and infant h anded to the nursery personnel who were present for the delivery. Placenta was delivered and noted to be 3 vessels and normal. Uterus was exteriorized and remaining placental tissue was removed. The uterus was then closed in 2 layers first with running locked 0 Vicryl suture followed by a second imbricating layer with 0 Vicryl suture. 0 Vicryl suture was then used in a horizontal mattress interrupted fashion to affect final hemostasis of the uterine incision line. Normal fallopian tubes and ovaries were visualized and the uterus was returned to the pelvis. Hemostasis was noted and rectus abdominis muscles were reapproximated in the midline with interrupted Number 0 Vicryl suture in a horizontal mattress fashion. Fascia was closed with running Number 1 PDS Strata fix suture. Subcutaneous tissue was irrigated with copious amouts of saline solution and then closed with running 3-0 Vicryl suture. Skin was closed with 4-0 monocryl suture in a running subcuticular fashion. Steri strips, telfa, and tape were placed across the incision. The patient tolerated the procedure well and was taken to the recovery room in satisfactory condition. Sponge, needle, and instrument counts were all reportedly correct. EBL was less than 500 cc. Ancef 2 gms IV was given prior to the procedure. Grafts/Implants Used: None - Complications None - Admit VTE Documentation VTE Present on Admission: Yes VTE Mechan Device Prophylaxis: SCD's
--- NOTE | 2018-10-20 20:52 | DCINST_ITS ---
Discharge Diet: No Restrictions Discharge Activity: May not drive while taking narcotic pain medications., May Shower, May Take a Tub Bath May resume sexual activity in: 4-6 weeks Lifting Restrictions: 20 pounds Additional Activity Instructions:: Nothing in the vagina for 4-6 weeks. You may return to work/school in 6 weeks. Call your doctor if your incision/area has: Continuous Slow Oozing, Sudden Increased Bleeding, Increased Pain/ Swelling, Increased Redness, Foul Smelling Discharge Call your doctor if you observe: Fever of 101 or Higher, Inability to urinate, Inability to have a bowel movement, Using more than one pad per hour Additional Instructions: If you experience any of the following, contact your healthcare provider. * Bleeding that soaks a pad every hour for 2 hours * Fever 100.4 or higher * Unrelieved incision or abdominal pain * Swelling, redness, discharge or bleeding from your incision or episiotomy site * Your incision begins to separate * Problems urinating (including inability to urinate or burning while urinating). * Visual changes * Severe headache * Flu-like symptoms * Pain or redness in one of both of your breasts * Pain, warmth, tenderness or swelling in your legs, especially the calf area * Frequent nausea and vomiting * Symptoms of depression or anxiety If you experience any of the following, call 911 or go to the nearest Emergency Room. * Chest pain * Problems breathing * Seizure activity * Partial or complete paralysis of a body part, slurred speech, weakness or drooping of the face, or a sudden inability to walk or hold your balance Allergies/Adverse Reactions: Allergies STERIODS Allergy (Mild, Uncoded 10/14/18 19:26) Other MY FACE/chest GOT RED benadryl helped Medications to take at Discharge Pantoprazole Sodium [Protonix] 40 mg PO DAILY 10/19/18 Pnv,Calcium 72/Iron/Folic Acid [Preplus Ca-Fe 27 mg-FA 1 mg Tb] 1 each PO DAILY 10/19/18 Docusate Sodium [Colace] 100 mg PO BID PRN PRN #60 cap 10/20/18 Oxycodone [Oxyir] 5 mg PO Q6H PRN PRN 7 Days #20 tab 10/20/18 The following prescriptions were given: Oxycodone [Oxyir] 5 mg PO Q6H PRN PRN 7 Days #20 tab PRN Reason: Severe Pain (6-06/15) Docusate Sodium [Colace] 100 mg PO BID PRN PRN #60 cap PRN Reason: Constipation Follow-Up: Call to make an appointment with your doctor for an incision check in 1-2 weeks. You will also need a 6 week post- follow up appointment. Test results from this visit will be discussed in further detail at your follow- up appointment, if applicable. Please Follow Up With: Matias Bryant MD - [phone] When: Call to make an appointment for an incision check in 2 weeks.
[2018-10-20] MEDS: Cefazolin 2 GM in 0.9% Normal Saline 100 ML IV (21:00)
[2018-10-20] MEDS: Oxytocin 30 units/NS 500 ml 30 UNITS/500 ML IV.SOLN 167 UNITS IV (21:08)
[2018-10-20] MEDS: Ketorolac 30 MG/ML Syringe IV (21:45)
[2018-10-20] MEDS: Lactated Ringers 1,000 ML 100 ML IV (22:10)
[2018-10-20] MEDS: Nalbuphine 10 MG/ML Ampul 5 MG IV (23:39)
[2018-10-21] VITALS (17 sets, daily range): BP systolic 106–136; BP diastolic 63–80; PULSE 73–95; RESP 16–18; TEMP 36.1–37; O2SAT 93–99
[2018-10-21] MEDS: Cefazolin 1 GM/50 ML BAG IV ×2 (03:30→11:19)
[2018-10-21] MEDS: Ketorolac 30 MG/ML Syringe IV ×4 (03:30→20:38)
[2018-10-21] MEDS: Lactated Ringers 1,000 ML 100 ML IV (05:45)
[2018-10-21 06:38] LABS: Hematocrit 35.2 % (37-47); Hemoglobin 11.7 g/dl (12.0-15.0); Mean Corp Hgb Conc 33.2 g/gl (32-36); Mean Corpuscular Hgb 28.5 pg (27.0-32.0); Mean Corpuscular Volume 85.6 fL (81-99); Mean Platelet Vol. 11.1 fl (6.2-12.0); Platelet Count 178 K/mm3 (150-450); RBC Distribution Width CV 15.4 % (11.6-14.6); RBC Distribution Width SD 46.1 fl (35.1-43.9); Red Blood Count 4.11 M/mm3 (4.2-5.4); White Blood Count 12.9 K/mm3 (4.4-11.0)
[2018-10-21 06:41] LABS: Scan Indicated on CBC? Y/N NO
[2018-10-21] MEDS: Nalbuphine 10 MG/ML Ampul 5 MG IV (07:16)
--- NOTE | 2018-10-21 08:34 | NURSING ---
Quarter-sized area of firm tissue noted under left nipple which pt states she isn't sure how long it's been there. made aware and will assess.
--- NOTE | 2018-10-21 09:11 | PCM.PN.OB ---
Subjective: Patient without complaints. Tolerating diet well. Minimal vaginal bleeding. Pain well controlled. - Physical Exam Vital Signs Temp Pulse Resp BP Pulse Ox 97.8 F 84 18 106/69 97 10/21/18 08:00 10/21/18 08:00 10/21/18 08:00 10/21/18 08:00 10/21/18 08:00 Oxygen Delivery Method Room Air Weight: 216 lb 11.43 oz Body Mass Index (BMI) 34.9 Intake and Output for Last 24 Hours 10/19/18 10/20/18 10/21/18 23:59 23:59 23:59 Intake Total 6257 / 6257 945 / 945 Output Total 2800 / 2800 1000 / 1000 Balance 3457 / 3457 -55 / -55 Laboratory Tests Past 24 Hrs 10/21/18 06:05 WBC 12.9 H RBC 4.11 L Hgb 11.7 L Hct 35.2 L MCV 85.6 MCH 28.5 MCHC 33.2 RDW 15.4 H RDW Differential 46.1 H Plt Count 178 MPV 11.1 Wound is clean, dry, intact. Good urine output. Hemoglobin okay. Minimal vaginal bleeding. Medical Necessity - Tobacco Use Smoking Status: Never smoker Assessment/Plan Doing well postoperative day #1 status post primary section. Continuing present care.
[2018-10-21] MEDS: 0.9% Saline Lock 10 ML Syringe IV ×3 (09:30→20:38)
--- NOTE | 2018-10-21 16:37 | NURSING ---
1400 Mom had her pump brought into unit and was instructed on it's use. William CARDONA
[2018-10-21] MEDS: Acetaminophen 500 MG Tablet 1000 MG PO (16:40)
[2018-10-22] MEDS: Ketorolac 30 MG/ML Syringe IV ×3 (03:39→14:00)
[2018-10-22] MEDS: 0.9% Saline Lock 10 ML Syringe IV ×2 (03:40→08:33)
[2018-10-22 03:45] VITALS: BP 128/77; PULSE 83; RESP 16; TEMP 37.2; O2SAT 98
[2018-10-22 08:40] VITALS: BP 127/79; PULSE 79; RESP 16; TEMP 36.7; O2SAT 99
--- NOTE | 2018-10-22 10:54 | PCM.PN.OB ---
Subjective: Patient without complaints. Tolerating diet well. Positive flatus. Wants to stay because baby not breast-feeding quite as she likes yet. - Physical Exam Vital Signs Temp Pulse Resp BP Pulse Ox 98.1 F 79 16 127/79 H 99 10/22/18 08:40 10/22/18 08:40 10/22/18 08:40 10/22/18 08:40 10/22/18 08:40 Oxygen Delivery Method Room Air Weight: 216 lb 11.43 oz Body Mass Index (BMI) 34.9 Intake and Output for Last 24 Hours 10/20/18 10/21/18 10/22/18 23:59 23:59 23:59 Intake Total 6257 / 6257 2100 / 2100 Output Total 2800 / 2800 2600 / 2600 800 / 800 Balance 3457 / 3457 -500 / -500 -800 / -800 Wound is clean, dry, intact. Medical Necessity - Tobacco Use Smoking Status: Never smoker Assessment/Plan Doing well postoperative day #2 status post primary section. Continuing present care.
[2018-10-22 14:06] VITALS: BP 126/77; PULSE 78; RESP 16; TEMP 36.6; O2SAT 99
[2018-10-22] MEDS: oxyCODONE 5 MG Tablet PO ×2 (15:18→19:30)
[2018-10-22 20:10] VITALS: BP 124/80; PULSE 92; RESP 18; TEMP 37.2; O2SAT 98
[2018-10-22] MEDS: Pantoprazole Sodium 40 MG Tablet PO (21:39)
[2018-10-23] MEDS: oxyCODONE 5 MG Tablet PO ×3 (00:16→11:23)
[2018-10-23 02:30] VITALS: BP 122/83; PULSE 87; RESP 16; TEMP 37.2
[2018-10-23 08:31] VITALS: BP 123/75; PULSE 89; RESP 16; TEMP 36.6; O2SAT 99
[2018-10-23] MEDS: Senna/Docusate Sodium 1 Tablet PO (08:36)
[2018-10-23] MEDS: Ibuprofen 600 MG Tablet PO (08:36)
--- NOTE | 2018-10-23 11:32 | PCM.PN.OB ---
Subjective: Patient without complaints. Tolerating diet well. Ready to go home. - Physical Exam Vital Signs Temp Pulse Resp BP Pulse Ox 97.9 F 89 16 123/75 H 99 10/23/18 08:31 10/23/18 08:31 10/23/18 08:31 10/23/18 08:31 10/23/18 08:31 Oxygen Delivery Method Room Air Weight: 216 lb 11.43 oz Body Mass Index (BMI) 34.9 Intake and Output for Last 24 Hours 10/21/18 10/22/18 10/23/18 23:59 23:59 23:59 Intake Total 2100 / 2100 Output Total 2600 / 2600 800 / 800 Balance -500 / -500 -800 / -800 Medical Necessity - Tobacco Use Smoking Status: Never smoker Assessment/Plan Doing well postoperative day #3 status post primary section. Will release to home with routine instructions.
--- NOTE | 2018-10-23 11:38 | DS.PCM_ITS ---
Discharge Summary Date of Admission: 10/19/18 Date of Discharge: 10/23/18 Summary: Admission diagnosis: Term intrauterine with -induced hypertension Discharge diagnosis: Term intrauterine with -induced hypertension, failure to progress, increasing distress, cephalopelvic disproportion, macrosomia. Procedure: Primary low transverse cervical section on October 20, 2018 HPI: Uneventful care. PE: Unremarkable. Hospital Course: The patient is a 32 year old G 1 P 0 who presented to [facility] at 40+ weeks gestation. She presented for induction for -induced hypertension. The patient progressed to 3-4 cm 95% effaced with high station but despite an intrauterine pressure monitor in place and Pitocin levels as high as 16 the baby's head failed to descend and cervix failed to dilate over a period of more than 8 hours. Further, anytime Pitocin levels were increased heart tones became nonreactive with occasional late decelerations noted. Two different pitocin breaks were taken in an attempt to make Pitocin more effective but despite this contractions were minimal with little effect on the patient. Given no progression over more than 8 hours, rupture of membranes nearly 12 hours, and intermittent nonreassuring heart tones it was decided to proceed with section for failure to progress and increasing stress. She subsequently had a primary for failure to progress, macro somia, cephalopelvic disproportion, increasing stress. Postoperatively she did well demonstrating a stable HGB on POD 1 and bowel fxn by POD 3 at which time it was felt she was ready for discharge. Homegoing Instruction: She was instructed not to drive for several days or if using narcotic pain medication, not to put anything in the vagina for 4 weeks, not to lift >25 lbs for 6 weeks and to call the office for an appointment in 2 weeks and 6 weeks. Discharge Medications: She was given a prescription for Oxycodone and Colace and also plans to use Aleve or Motrin or Tylenol at home as needed for pain and constipation. - Physical Exam Vital Signs Temp Pulse Resp BP Pulse Ox 97.9 F 89 16 123/75 H 99 10/23/18 08:31 10/23/18 08:31 10/23/18 08:31 10/23/18 08:31 10/23/18 08:31 Oxygen Delivery Method Room Air Weight: 216 lb 11.43 oz Body Mass Index (BMI) 34.9 Intake and Output for Last 24 Hours 10/21/18 10/22/18 10/23/18 23:59 23:59 23:59 Intake Total 2100 / 2100 Output Total 2600 / 2600 800 / 800 Balance -500 / -500 -800 / -800
[2018-10-23 12:07] VITALS: BP 127/74; PULSE 70; RESP 16; TEMP 36.7
== END 2018-10-23 11:40 | disposition home or self-care (01) | DRG 788 ==
PROVIDERS: Obstetrics & Gynecology; Admitting Provider Obstetrics & Gynecology; Referring Provider Obstetrics & Gynecology; Visit Provider Obstetrics & Gynecology
DX: O76 Abnormality in fetal heart rate and rhythm complicating labor and delivery (principal); O65.4 Obstructed labor due to fetopelvic disproportion, unspecified; Z3A.40 40 weeks gestation of pregnancy; Z37.0 Single live birth; O13.4 Gestational [pregnancy-induced] hypertension without significant proteinuria, complicating childbirth
CPT/HCPCS: 59025; 59050; 82565; 84450; 84460; 84550; 85027; 85610; 85730; 86850; 86900; 99218; J7120; A4216; G0378; J0290; J2405

== ENCOUNTER → 2019-02-20 | Outpatient (CLI) | payer BC, SELFPAY ==
[2019-02-23 15:35] LABS: HPV HC, High Risk Negative (Negative)
== END | disposition home or self-care (01) ==
LOC: LABSPEC 13:31
PROVIDERS: Visit Provider Obstetrics & Gynecology
DX: Z12.4 Encounter for screening for malignant neoplasm of cervix (principal)
CPT/HCPCS: 87624; 88175; G0145

== ENCOUNTER → 2021-02-27 12:12 | Outpatient (CLI) | payer BC, SELFPAY ==
[2021-03-05 11:51] LABS: HPV Reflexed? NOT INDICATED
== END ==
PROVIDERS: Visit Provider Obstetrics & Gynecology
DX: Z12.4 Encounter for screening for malignant neoplasm of cervix (principal)
CPT/HCPCS: 88175; G0145

== ENCOUNTER → 2023-03-12 | Outpatient (CLI) | payer OTHER, SELFPAY ==
--- NOTE | 2023-03-12 08:43 | US_ITS ---
STUDY: ULTRASOUND BREAST - RIGHT REASON FOR EXAM: Female, 37 years old. Palpable lump in the right breast. TECHNIQUE: Axial and longitudinal images of the RIGHT breast were performed with a high resolution ultrasound transducer. # OF IMAGES: 8 COMPARISON: Comparison is made with prior mammogram done earlier in the day. FINDINGS: RIGHT Breast: The mammographic abnormality corresponds to a 1.1 cm x 1.4 cm x 0.8 cm hypoechoic heterogeneous nodule just deep to the subcutaneous tissue. This may represent a large sebaceous cyst. Biopsy recommended. US/Breast Limited Unilateral IMPRESSION: The mammographic abnormality corresponds to a 1.1 cm x 1.4 cm x 0.8 cm hypoechoic heterogeneous nodule just deep to the subcutaneous tissues. This may represent a large sebaceous cyst. Tissue sampling is recommended. ASSESSMENT CATEGORY: BIRADS Category 4: Suspicious - Biopsy Should Be Considered. A letter regarding these results will be sent to the patient by the facility within 30 days. Electronically Signed: Marcellus Ashley MD at 14:58 EDT ,
--- NOTE | 2023-03-12 08:43 | BI_ITS ---
MAMMOGRAPHY - BILATERAL DIAGNOSTIC REASON FOR EXAM: Female, 37 years old. Right breast lump. PERTINENT HISTORY: Grandmother with breast cancer. Aunt with breast cancer. History of prior bilateral breast reduction surgery. TECHNIQUE: Digital bilateral breast kaiden (3D mammographic acquisition) in the CC and MLO projections. 2-D mediolateral oblique (MLO) and craniocaudad (CC) views of both breasts were obtained. CAD: Full Field Digital Mammography with Computer Added Detection was performed. COMPARISON: None. Baseline examination. FINDINGS: Breast Composition: There are scattered areas of fibroglandular density. The palpable lump corresponds to a 1.2 cm x 1.1 cm well-defined nodule in the deep inferior slightly medial aspect of the right breast. Correlation with ultrasound is recommended. Benign-appearing bilateral axillary lymph nodes. No other significant abnormalities are identified. BI/DIAG MAMM W/CAD, BILAT IMPRESSION: 1.2 cm x 1.1 cm well-defined nodule in the inferior slightly medial aspect of the right breast. Correlation with ultrasound is recommended. ASSESSMENT CATEGORY: BIRADS Category 0: Incomplete. Need additional imaging evaluation. A letter regarding these results will be sent to the patient by the facility within 30 days. Approximately 10% of breast cancers are not detected by mammography. A normal mammogram should not delay biopsy of a clinically suspicious abnormality. Electronically Signed: Marcellus Ashley MD at 10:08 EDT ,
== END | disposition home or self-care (01) ==
PROVIDERS: PCP Family Medicine; Referring Provider Nurse Practitioner Women's Health; Visit Provider Nurse Practitioner Women's Health
DX: N63.10 Unspecified lump in the right breast, unspecified quadrant (principal); Z80.3 Family history of malignant neoplasm of breast
CPT/HCPCS: 76642; 77062; 77066; G0279

== ENCOUNTER → 2023-03-16 | Outpatient (CLI) | payer OTHER, SELFPAY ==
--- NOTE | 2023-03-16 09:20 | BRBX_PTH ---
PATIENT: MARGAUX LARA LOC: [facility] U#:[id number] AGE/SX: 37/F ROOM: RE03/16/[address]: Dr. Robles Hope MD : 1985 BED: DIS: 03/16/2023 SPEC #: [id number] RECD: 03/16/23 10:06 STATUS: ROB [place] #: [id number] ANDRE: 03/16/23 09:[address]: Robles Hope DEPT: SURGICAL PATHOLOGY RECD BY: Margaux Bowie ENTERED: 03/16/23 11:09 SP TYPE: BREAST BX OTHR DR: Dr. Edgar Snow MD Tissues: Right breast, NOS Procedures: Surgery Specimen Level III HEADER OPERATION: Excision sebaceous cyst right breast PRE-OP DIAGNOSIS: Right breast lump TISSUE SUBMITTED: Sebaceous cyst right breast MICROSCOPIC DIAGNOSIS Right breast cyst, excision: Epidermal inclusion cyst. AM:derrick 03/17/23 MICROSCOPIC DESCRIPTION Slides are reviewed. GROSS DESCRIPTION Received in formalin is one container labeled with the patient name and designated right breast, sebaceous cyst. The specimen consists of multiple fragments of skin and chong white cheesy material measuring in aggregate 2 x 2 x 0.3 cm. The specimen is totally submitted in one cassette. / SJ: 03/16/23 TC:5 CPT: 70914
== END | disposition home or self-care (01) ==
LOC: LABSPEC 10:21
PROVIDERS: PCP Family Medicine; Referring Provider Surgery; Visit Provider Surgery
DX: N63.10 Unspecified lump in the right breast, unspecified quadrant (principal)
CPT/HCPCS: 88304; 88305